=== PATIENT | female | born 1960 | race Caucasian/White ===

== ENCOUNTER 2018-04-09 15:41 | Emergency (ER) | payer OTHER ==
[2018-04-09 15:53] VITALS: BP 122/79; PULSE 57; RESP 16; TEMP 98.2
[2018-04-09] MEDS ORDERED: MORPHINE SULFATE 4 MG/ML SYRINGE IM STA (16:29)
[2018-04-09] MEDS ORDERED: CYCLOBENZAPRINE 10 MG TAB PO STA (16:29)
--- NOTE | 2018-04-09 18:03 | CT ---
EXAMINATION TYPE: CT lumbar spine wo con DATE OF EXAM: 04/09/2018 5:20 PM COMPARISON: None HISTORY: Low back pain on and off. CT DLP: 904.8 mGycm Automated exposure control for dose reduction was used. Unenhanced CT of the lumbar spine was performed. Bone and soft tissue window settings are submitted as well as coronal and sagittal reconstructions. There is a mild lumbar dextroscoliosis. There is hypertrophic degenerative spurring of the endplates mainly in the mid and upper lumbar spine. The posterior elements appear intact. There is no compressi on fracture. There is mild narrowing of the disc spaces at L1-2 and L2-3. There is no lumbar paraspin al mass. The facet joints appear intact. IMPRESSION: Spondylotic changes. Mild scoliosis. Posterior disc herniation at L2-3 is broad-based. There is mild posterior central and left-sided L3-4 disc herniation. There is small posterior disc herniation at L4 -5. There is some facet arthropathy and lateral recess stenosis and relative spinal stenosis at L4-5 .
--- NOTE | 2018-04-09 18:08 | ED ---
Back Pain HPI - General Chief Complaint: Back Pain/Injury Stated Complaint: Back pain Time Seen by Provider: 04/09/18 16:00 Source: patient Limitations: no limitations - History of Present Illness Initial Comments: 58yo with hx of chronic back pain with previous disc herniations presenting today for cc of increasing back pain x 2-3 days. Pt states she has had chronic back pain, sees pain specialist. 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 States this has been fore a month, noticing increasing low back pain. Pt states she noticed more pain the past 2-3 days. Today she states she has increased pain with twisting motion, doesnt think she "can make it to work like this". Denies fever, chills, loss of bowel , bladder control, vaginal/perineal numbness, urinary retention, numbness/ parathesias or muscle weakness of lower extremities, steroid use, hx of cancer or IVDU. Pt denies radiaiton and states that the pain is reproducible when touching each side of the lower back. Pt is ambulatory upon arrival. Pt does states that ambulating increases the pain. Pt states she is out of her ibuprofen 800mg. Upon arrival pt appears well. - Related Data Home Medications Medication Instructions Recorded Confirmed Gabapentin [Neurontin] 300 mg PO DAILY@0700 04/09/18 04/09/18 Ibuprofen [Motrin] 800 mg PO TID PRN 04/09/18 04/09/18 Levothyroxine Sodium [Synthroid] 50 mcg PO DAILY 04/09/18 04/09/18 Previous Rx's Medication Instructions Recorded Orphenadrine [Norflex] 100 mg PO Q12H 4 Days #8 tablet.er 04/09/18 Allergies Allergy/AdvReac Type Severity Reaction Status Date / Time sulfamethoxazole Allergy Rash/Hives Verified 04/09/18 16:13 [From Bactrim] trimethoprim [From Bactrim] Allergy Rash/Hives Verified 04/09/18 16:13 Review of Systems ROS Statement: Those systems with pertinent positive or pertinent negative responses have been documented in the HPI. ROS Other: All systems not noted in ROS Statement are negative. ENT: Denies: throat pain Respiratory: Denies: cough, dyspnea Cardiovascular: Denies: chest pain, dyspnea on exertion Endocrine: Denies: fatigue Gastrointestinal: Denies: abdominal pain, nausea, vomiting, hematemesis, melena Genitourinary: Denies: urgency, dysuria, frequency, hematuria Musculoskeletal: Reports: back pain Skin: Denies: rash Past Medical History Past Medical History: Atrial Fibrillation, Thyroid Disorder History of Any Multi-Drug Resistant Organisms: MRSA Date of last positivie culture/infection: 2014 MDRO Source:: STOMACH Past Surgical History: Cholecystectomy, Orthopedic Surgery Past Psychological History: No Psychological Hx Reported Smoking Status: Never smoker Past Alcohol Use History: None Reported Past Drug Use History: None Reported General Exam - General Exam Comments Initial Comments: General: The patient is awake and alert, in no distress, and does not appear acutely ill. Eye: Pupils are equal, round and reactive to light, extra-ocular movements are intact. No nystagmus. There is normal conjunctiva bilaterally. No signs of icterus. Ears, nose, mouth and throat: There are moist mucous membranes and no oral lesions. Neck: The neck is supple, there is no tenderness or JVD. Cardiovascular: There is a regular rate and rhythm. No murmur, rub or gallop is appreciated. Respiratory: Lungs are clear to auscultation, respirations are non-labored, breath sounds are equal. No wheezes, stridor, rales, or rhonchi. Gastrointestinal: Soft, non-distended, non-tender abdomen without masses or organomegaly noted. There is no rebound or guarding present. No CVA tenderness. Bowel sounds are unremarkable. Musculoskeletal: Normal ROM at lumbar spine, tenderness to with rotations and forwards flexion. Strength 5/5 of the LE equal b/l. Sensation intact including saddle region equal b/l. DP pulses equal bilaterally 2+. Pt able to heel and toe walk. +2/5 DTR b/l of LE no myoclonus or fasciculations. No atrophy noted. Pt able to ambulate fully weight bearing. + SLR b//l. Very mild midline tenderness to palpation of lumbar spine, more paravertebral tenderness of the lumbar spine Neurological: A&O x 3. CN II-XII intact, There are no obvious motor or sensory deficits. Coordination appears grossly intact. Speech is normal. Skin: Skin is warm and dry and no rashes or lesions are noted. Psychiatric: Cooperative, appropriate mood & affect, normal judgment. Limitations: no limitations Course Vital Signs 04/09/18 15:48 Temperature 98.2 F Pulse Rate 57 L Respiratory 16 Rate Blood Pressure 122/79 O2 Sat by Pulse 100 Oximetry Medical Decision Making - Medical Decision Making 58yo with cc of acute on chronic low back pain. CT revealed herniation, no significant stenosis. No signs of PE concerning for cauda equina. Pt appears well. Able to ambulate, no acute distress. Pain was significantly reproduced with palpation fo muscle of the lumbar spine. AT this time I feel pt has a low back strain. Pt given mmx relaxants and pain medication during stay. Will be discharge with ibuprofen, norflex and PCP referral for further f/u. Pt agreeable with plan. Return parameters discussed at length. Case discussed with Dr. Pete. Pt given work note to rest back for 2 days. Disposition Clinical Impression: Low back strain, Acute exacerbation of chronic low back pain Disposition: HOME SELF-CARE Condition: Good Instructions: Low Back Strain (ED), Acute Low Back Pain (ED) Additional Instructions: Please use medication as discussed. Please follow-up with family doctor in the next 2 days. Please return to emergency room if the symptoms increase or worsen or for any other concerns. Prescriptions: Orphenadrine [Norflex] 100 mg PO Q12H 4 Days #8 tablet.er Is patient prescribed a controlled substance at d/c from ED?: No Referrals: Tamie Sharp MD [Primary Care Provider] - 1-2 days Time of Disposition: 18:08
== END 2018-04-09 19:19 | disposition home or self-care (01) ==
LOC: EC 15:41
DX: S39.012A Strain of muscle, fascia and tendon of lower back, initial encounter (principal); M51.26 Other intervertebral disc displacement, lumbar region; E07.9 Disorder of thyroid, unspecified; Z86.14 Personal history of Methicillin resistant Staphylococcus aureus infection; Z79.899 Other long term (current) drug therapy; Z88.2 Allergy status to sulfonamides; X58.XXXA Exposure to other specified factors, initial encounter; Y92.69 Other specified industrial and construction area as the place of occurrence of the external cause; Y99.0 Civilian activity done for income or pay
CPT/HCPCS: 72131; 99283; 96372; J2270

== ENCOUNTER → 2018-05-11 | Outpatient (CLI) | payer OTHER ==
[2018-05-11 10:19] LABS: Basophils # (A) 0.1 k/uL (0-0.2); Basophils % (A) 1 %; Eosinophils # (A) 0.2 k/uL (0-0.7); Eosinophils % (A) 3 %; HCT 42.9 % (34.0-46.0); HGB 13.5 gm/dL (11.4-16.0); Lymphocytes # (A) 1.7 k/uL (1.0-4.8); Lymphocytes % (A) 26 %; MCH 27.5 pg (25.0-35.0); MCHC 31.4 g/dL (31.0-37.0); MCV 87.6 fL (80.0-100.0); Mean Platelet Volume 6.8; Monocytes # (A) 0.4 k/uL (0-1.0); Monocytes % (A) 7 %; Neutrophils # (A) 4.1 k/uL (1.3-7.7); Neutrophils % (A) 63 %; Platelet Count 331 k/uL (150-450); RDW 13.8 % (11.5-15.5); WBC 6.5 k/uL (3.8-10.6)
[2018-05-11 13:39] LABS: Erythrocyte Sedimentation Rate 21 mm/hr (0-20)
[2018-05-11 17:05] LABS: Rheumatoid Factor 10 IU/mL (0-15)
[2018-05-11 18:11] LABS: Albumin 4.5 g/dL (3.80-4.90); Albumin/Globulin Ratio 1.67 (1.60-3.17); Anion Gap 7.3 mmol/L (4.00-12.00); Calcium 9.8 mg/dL (8.7-10.3); Carbon Dioxide 25.7 mmol/L (21.6-31.8); Globulin 2.7 g/dL (1.6-3.3); LDL Cholesterol,Calculated 136.8 mg/dL (0.0-131.0); Potassium 5.3 mmol/L (3.5-5.5); Total Bilirubin 0.4 mg/dL (0.3-1.2); Total Protein 7.2 g/dL (6.2-8.2); VLDL Calculation 32.2 mg/dL (5.00-40.00)
== END ==
LOC: LABWHC1 09:10
PROVIDERS: ATTEND Family Medicine
DX: E06.3 Autoimmune thyroiditis (principal); E66.9 Obesity, unspecified; J45.20 Mild intermittent asthma, uncomplicated; M25.50 Pain in unspecified joint
CPT/HCPCS: 36415; 80053; 80061; 84439; 84443; 85025; 85652; 86038; 86431

== ENCOUNTER → 2018-05-19 | Outpatient (CLI) | payer OTHER ==
--- NOTE | 2018-05-19 14:29 | US ---
EXAMINATION TYPE: US thyroid st tissue head/neck DATE OF EXAM: 05/19/2018 COMPARISON: NONE CLINICAL HISTORY: E04.9 Nontoxic goiter, E06.3Autoimmune thyroiditis. Enlarged, heterogeneous thyroid gland is seen bilaterally. GLAND SIZE: Right Lobe: 8.7 x 3.3 x 3.3 cm Overall Parenchyma: heterogenous Left Lobe: 7.3 x 2.6 x 2.7 cm Overall Parenchyma: heterogeneous Isthmus Thickness: 1.3 cm NODULES RIGHT: # of nodules measured on right: 0 LEFT: # of nodules measured on left: 1 1. 1.0 X 0.4 x 0.5 cm hypoechoic cystic nodule at the lower pole with well-defined margins. This n odule is taller than wide and shows no intranodular vascularity. ISTHMUS: # of nodules measured in the isthmus: 0 Bilateral neck scanned: no evidence of lymphadenopathy. Heterogeneous markedly enlarged thyroid gland is identified with small cystic nodule marked by techno logist lower pole level left thyroid lobe. IMPRESSION: Heterogeneous enlarged thyroid without worrisome greater than 1 cm nodule. Findings consistent with d iffuse goiter.
== END | disposition home or self-care (01) ==
LOC: RADUSWWP 13:35
PROVIDERS: ATTEND Family Medicine
DX: E04.1 Nontoxic single thyroid nodule (principal)
CPT/HCPCS: 76536

== ENCOUNTER → 2018-05-27 | Outpatient (CLI) | payer OTHER ==
[2018-05-27 21:05] LABS: Hemoglobin A1C 5.5 % (4.0-6.0)
== END | disposition home or self-care (01) ==
LOC: LABWHC1 11:48
PROVIDERS: ATTEND Family Medicine
DX: R73.9 Hyperglycemia, unspecified (principal)
CPT/HCPCS: 36415; 82947; 83036

== ENCOUNTER → 2018-07-14 | Outpatient (CLI) | payer OTHER ==
--- NOTE | 2018-07-14 13:08 | XR ---
EXAMINATION TYPE: XR hand complete RT DATE OF EXAM: 07/14/2018 COMPARISON: NONE HISTORY: Pain TECHNIQUE: Three views are submitted. FINDINGS: The osseous structures are intact. There is severe arthropathy of the first carpal metacarpal joint i n a pattern compatible osteoarthritis. Soft tissue ossification noted. Hypertrophic change and mild n arrowing of all DIP joints. IMPRESSION: 1. Arthropathy with severe changes involving the first carpal metacarpal joint in a pattern most typi saud of osteoarthritis.
--- NOTE | 2018-07-14 13:09 | XR ---
EXAMINATION TYPE: XR wrist complete RT DATE OF EXAM: 07/14/2018 CLINICAL HISTORY: pain TECHNIQUE: Frontal, lateral and oblique images of the right wrist are obtained. COMPARISON: None. FINDINGS: There is no acute fracture/dislocation evident. Severe narrowing first carpometacarpal joint space wi th bony fragmentation. Radiocarpal joint space narrowing. The overlying soft tissue appears unremarka ble. IMPRESSION: There is no acute fracture or dislocation seen. ICD 10 NO FRACTURE, INITIAL EVALUATION
== END | disposition home or self-care (01) ==
LOC: RADXRMAIN 12:32
PROVIDERS: ATTEND Family Medicine
DX: M19.041 Primary osteoarthritis, right hand (principal); S66.911A Strain of unspecified muscle, fascia and tendon at wrist and hand level, right hand, initial encounter

== ENCOUNTER → 2018-08-04 | Outpatient (CLI) | payer OTHER ==
[2018-08-05 01:14] LABS: Rheumatoid Factor 6 IU/mL (0-15)
== END | disposition home or self-care (01) ==
LOC: LABWHC1 15:45
PROVIDERS: ATTEND Family Medicine
DX: M25.50 Pain in unspecified joint (principal)
CPT/HCPCS: 36415; 85652; 86038; 86431

== ENCOUNTER → 2018-08-10 | Outpatient (CLI) | payer OTHER ==
[~2018-08-10] MED LIST: REGADENOSON 0.4 MG/5 ML SYRINGE IV ONE
--- NOTE | 2018-08-10 11:21 | NM ---
EXAMINATION TYPE: NM stress lexiscan cardiolite DATE OF EXAM: 08/10/2018 COMPARISON: NONE HISTORY: Precordial chest pain and abnormal EKG. TECHNIQUE: After the intravenous administration of 10.0 mCi Tc 99m Sestamibi - Cardiolite resting SP ECT images acquired 45 minutes post injection. The patient received 0.4mg Lexiscan, 25.7 mCi Tc 99m Sestamibi - Stress images obtained [address] injection FINDINGS: Review of stress and rest SPECT images demonstrates no distinct perfusion abnormality. Gated analysi s shows normal wall motion with an estimated left ventricular ejection fraction of 61 %. IMPRESSION: No scintigraphic evidence for reversible ischemia.
--- NOTE | 2018-08-10 19:41 | P.STRESS ---
- Stress Test Note Stress Test Results/Findings: Exam Performed: NM stress lexiscan cardiolite Exam Date: 08/10/18 Reason for Exam: Chest Pain Height: 4 ft 10 in Weight: 79.379 kg Protocol: Lexiscan Stage: na Duration of Exercise: na Resting Heart Rate: 49 Resting Blood Pressure: 117/62 Maximum Achieved Heart Rate: 63 Maximum Achieved Blood Pressure: 148/105 85% PMHR: 139 100% PMHR: 164 METS: na Technologist Comment: Stress Test Results/Findings: Baseline heart rate 49 beats a minute, Baseline blood pressure 117/62 mmHg with ventricular lead ECG shows sinus rhythm with a 0.[address] depression inferiorly No ECG changes noted during Lexiscan infusion Nuclear portion of the study will be reported separately by radiology Lowest blood pressure recorded 98/62 mmHg during Lexiscan infusion, transient Heart rates remained stable
== END ==
LOC: RADNMMAIN 08:04
PROVIDERS: ATTEND Family Medicine
DX: R07.89 Other chest pain (principal)
CPT/HCPCS: 93017; 78452; A9500; J2785

== ENCOUNTER → 2019-05-04 | Outpatient (CLI) | payer OTHER ==
--- NOTE | 2019-05-04 11:36 | XR ---
EXAMINATION TYPE: XR cervical spine limited DATE OF EXAM: 05/04/2019 TECHNIQUE: Frontal, lateral and open mouth view of the cervical spine are obtained. HISTORY: Cervical Spine pain COMPARISON: None FINDINGS: The cervical spine is visualized in its entirety from C1 thru the top of T1 level, vertebr al body heights are satisfactory. There is minimal retrolisthesis of C5 on C6. Minimal intervertebra l disc space narrowing at C5-C6 and C6-C7. Multilevel uncovertebral hypertrophy is seen The pre-verte bral soft tissue appears within normal limits. The C1-C2 articulation is within normal limits on the open mouth view. IMPRESSION: 1. No acute fracture is seen in the cervical spine. 2. Minimal retrolisthesis of C5 on C6 and mild multilevel degenerative disc disease of the cervical s pine most pronounced at C5-C6 and C6-C7.
== END | disposition home or self-care (01) ==
LOC: RADXRMAIN 09:57
PROVIDERS: ATTEND Family Medicine
DX: M50.322 Other cervical disc degeneration at C5-C6 level (principal); M43.12 Spondylolisthesis, cervical region
CPT/HCPCS: 72040

== ENCOUNTER → 2021-04-05 | Outpatient (CLI) | payer OTHER ==
--- NOTE | 2021-04-06 09:22 | CT ---
EXAMINATION TYPE: CT lumbar spine wo con DATE OF EXAM: 04/05/2021 5:49 PM COMPARISON: 04/09/2018 HISTORY: Lumbar neuritis CT DLP: 818.10 mGycm Automated exposure control for dose reduction was used. Unenhanced CT of the lumbar spine was performed. Bone and soft tissue window settings are submitted as well as coronal and sagittal reconstructions. Scoliotic curvature is noted convex to the right. L1-L2: There is evidence of vacuum disc. Ventral and dorsal spondylosis. Mild posterior disc bulge. N o disc herniation or protrusion. No central stenosis. Foramina are patent bilaterally. L2-L3: There is evidence of vacuum disc. Ventral and dorsal spondylosis. Mild posterior disc bulge. N o disc herniation or protrusion. No central stenosis. Left lateral recess stenosis identified. Bilate ral foraminal encroachment. Foramina are patent bilaterally. L3-L4: Moderate degenerative disc space narrowing. Circumferential disc bulge greatest posteriorly. H ypertrophy of the ligamentum flavum and facet joint arthropathy resulting in mild central stenosis. L4-L5: Moderate degenerative disc space narrowing. Posterior disc bulge. Hypertrophy ligamentum flavum and facet joint arthropathy resulting in moderate central stenosis. Mild bilateral foraminal encroachment. L5-S1: Moderate disc space narrowing. Broad-based subligamentous disc herniation posterocentral into the left resulting in left lateral recess stenosis. No central stenosis seen. Left foraminal encroach ment. IMPRESSION: 1. Multilevel degenerative disc disease. 2. Central stenosis at L3-4 and L4-5 as discussed above. Left lateral recess stenosis at L5-S1 and L2 -3.
== END | disposition home or self-care (01) ==
LOC: RADCTMAIN 17:17
PROVIDERS: ATTEND Family Medicine
DX: M51.17 Intervertebral disc disorders with radiculopathy, lumbosacral region (principal); M48.061 Spinal stenosis, lumbar region without neurogenic claudication; M47.26 Other spondylosis with radiculopathy, lumbar region
CPT/HCPCS: 72131

== ENCOUNTER 2021-07-22 17:41 | Observation (INO) | payer OTHER ==
[2021-07-22 19:44] LABS: Basophils # (A) 0.1 k/uL (0-0.2); Basophils % (A) 1 %; Eosinophils # (A) 0.2 k/uL (0-0.7); Eosinophils % (A) 2 %; HCT 40.4 % (34.0-46.0); HGB 13.3 gm/dL (11.4-16.0); Lymphocytes # (A) 2.2 k/uL (1.0-4.8); Lymphocytes % (A) 25 %; MCH 29.3 pg (25.0-35.0); MCHC 32.8 g/dL (31.0-37.0); MCV 89.2 fL (80.0-100.0); Mean Platelet Volume 7.6; Monocytes # (A) 0.5 k/uL (0-1.0); Monocytes % (A) 6 %; Neutrophils # (A) 5.8 k/uL (1.3-7.7); Neutrophils % (A) 65 %; Platelet Count 358 k/uL (150-450); RBC 4.52 m/uL (3.80-5.40); WBC 8.9 k/uL (3.8-10.6)
[2021-07-22 19:46] LABS: Calcium 8.8 mg/dL (8.4-10.2); Total Bilirubin 0.5 mg/dL (0.2-1.3)
[2021-07-22 19:47] LABS: Prothrombin Time 10.5 sec (9.0-12.0)
--- NOTE | 2021-07-22 19:53 | XR ---
EXAMINATION TYPE: XR chest 2V DATE OF EXAM: 07/22/2021 COMPARISON: NONE HISTORY: Palpitations TECHNIQUE: 2 views FINDINGS: Heart is enlarged. No heart failure seen. Lungs are clear of infiltrate. There is no pleura l effusion. Costophrenic angles are clear. There are chest leads. Bony thorax is intact. IMPRESSION: Mild cardiomegaly. No active cardiopulmonary disease.
--- NOTE | 2021-07-22 20:05 | ED ---
General Adult HPI - General Chief complaint: Chest Pain Stated complaint: palpitations Time Seen by Provider: 07/22/21 18:45 Source: patient, EMS Mode of arrival: EMS - History of Present Illness Initial comments: 61-year-old female past history of A. fib presents to the emergency department with palpitations and chest pain. Reports that her symptoms started earlier this afternoon. She was using her pulse ox to check her heart rate was fluctuating between 85 and 140. She felt as if something was sitting on her chest. She denies previous history of coronary disease. Last cardiac workup was in 2019. Denies fevers, chills or cough. She took 2 Aleve without any improvement in her symptoms. No other alleviating, filing or registry clerk modifying factors - Related Data Home Medications Medication Instructions Recorded Confirmed Cephalexin [Keflex] 500 mg PO Q12HR 07/22/21 07/22/21 Ergocalciferol [Vitamin D2 (1250 1,250 mcg PO MO 07/22/21 07/22/21 Mcg = 11823 Iu)] Furosemide [Lasix] 20 mg PO DAILY 07/22/21 07/22/21 Gabapentin 600 mg PO TID 07/22/21 07/22/21 HYDROcodone/APAP 7.5-325MG [[place] 1 tab PO Q12H PRN 07/22/21 07/22/21 7.5-325] Ibuprofen [Motrin] 600 mg PO BID 07/22/21 07/22/21 Levothyroxine Sodium [Synthroid] 100 mcg PO DAILY 07/22/21 07/22/21 Previous Rx's Medication Instructions Recorded Metoprolol Tartrate [Lopressor] 12.5 mg PO BID 90 Days #180 tab 07/23/21 Allergies Allergy/AdvReac Type Severity Reaction Status Date / Time sulfamethoxazole Allergy Rash/Hives Verified 07/22/21 19:10 [From Bactrim] trimethoprim [From Bactrim] Allergy Rash/Hives Verified 07/22/21 19:10 Review of Systems ROS Statement: Those systems with pertinent positive or pertinent negative responses have been documented in the HPI. ROS Other: All systems not noted in ROS Statement are negative. Past Medical History Past Medical History: Atrial Fibrillation, Thyroid Disorder History of Any Multi-Drug Resistant Organisms: MRSA Date of last positivie culture/infection: 2014 MDRO Source:: STOMACH Past Surgical History: Cholecystectomy, Orthopedic Surgery Past Psychological History: No Psychological Hx Reported Past Alcohol Use History: None Reported Past Drug Use History: None Reported - Past Family History Father Family Medical History: COPD, Diabetes Mellitus Additional Family Medical History / Comment(s): enalrged heart General Exam General appearance: alert, in no apparent distress Head exam: Present: atraumatic, normocephalic, normal inspection Eye exam: Present: normal appearance, PERRL, EOMI. Absent: scleral icterus, conjunctival injection, periorbital swelling ENT exam: Present: normal exam, mucous membranes moist Neck exam: Present: normal inspection. Absent: tenderness, meningismus, lymphadenopathy Respiratory exam: Present: normal lung sounds bilaterally. Absent: respiratory distress, wheezes, rales, rhonchi, stridor Cardiovascular Exam: Present: regular rate, normal rhythm, normal heart sounds. Absent: systolic murmur, diastolic murmur, rubs, gallop, clicks GI/Abdominal exam: Present: soft, normal bowel sounds. Absent: distended, tenderness, guarding, rebound, rigid Extremities exam: Present: normal inspection, full ROM, normal capillary refill. Absent: tenderness, pedal edema, joint swelling, calf tenderness Back exam: Present: normal inspection Neurological exam: Present: alert, oriented X3, CN II-XII intact Psychiatric exam: Present: normal affect, normal mood Skin exam: Present: warm, dry, intact, normal color. Absent: rash Course Vital Signs 07/22/21 07/22/21 18:06 21:01 Temperature 98.2 F Pulse Rate 65 58 L Respiratory 18 18 Rate Blood Pressure 139/70 138/85 O2 Sat by Pulse 97 98 Oximetry EKG Findings - EKG Comments: EKG Findings:: EKG demonstrates sinus rhythm with rate of 63. DE interval 173. QRS 93. QTC of 421. No acute ST segment elevation. Inverted T-wave in V2 Medical Decision Making - Medical Decision Making Upon arrival patient was placed into room 13. History and physical exam was performed. Patient placed on continuous pulse ox and cardiac monitoring. Laboratory studies obtained. First troponin is negative. Chest x-ray demonstrates cardiomyopathy. Patient is given an aspirin and a sublingual nitro. Recommended admission to trend the troponin's for which the patient did agree to. Spoke with Dr. Calderon who agreed to admit the patient. Patient taken to floor in stable condition - Lab Data Result diagrams: 07/23/21 05:00 07/23/21 05:00 Lab Results 07/22/21 07/22/21 07/22/21 Range/Units 19:27 19:27 19:27 WBC 8.9 (3.8-10.6) k/uL RBC 4.52 (3.80-5.40) m/uL Hgb 13.3 (11.4-16.0) gm/dL Hct 40.4 (34.0-46.0) % MCV 89.2 (80.0-100.0) fL MCH 29.3 (25.0-35.0) pg MCHC 32.8 (31.0-37.0) g/dL RDW 14.0 (11.5-15.5) % Plt Count 358 (150-450) k/uL MPV 7.6 Neutrophils % 65 % Lymphocytes % 25 % Monocytes % 6 % Eosinophils % 2 % Basophils % 1 % Neutrophils # 5.8 (1.3-7.7) k/uL Lymphocytes # 2.2 (1.0-4.8) k/uL Monocytes # 0.5 (0-1.0) k/uL Eosinophils # 0.2 (0-0.7) k/uL Basophils # 0.1 (0-0.2) k/uL PT 10.5 (9.0-12.0) sec INR 1.0 (<1.2) APTT 26.0 (22.0-30.0) sec Sodium 140 (137-145) mmol/L Potassium 4.0 (3.5-5.1) mmol/L Chloride 106 (98-107) mmol/L Carbon Dioxide 28 (22-30) mmol/L Anion Gap 6 mmol/L BUN 18 H (7-17) mg/dL Creatinine 0.88 (0.52-1.04) mg/dL Est GFR (CKD-EPI)AfAm 84 (>60 ml/min/1.73 sqM) Est GFR (CKD-EPI)NonAf 73 (>60 ml/min/1.73 sqM) Glucose 92 (74-99) mg/dL Calcium 8.8 (8.4-10.2) mg/dL Magnesium 2.0 (1.6-2.3) mg/dL Total Bilirubin 0.5 (0.2-1.3) mg/dL AST 22 (14-36) U/L ALT 14 (4-34) U/L Alkaline Phosphatase 98 (38-126) U/L Troponin I (0.000-0.034) ng/mL Total Protein 7.0 (6.3-8.2) g/dL Albumin 4.0 (3.5-5.0) g/dL 07/22/21 Range/Units 19:27 WBC (3.8-10.6) k/uL RBC (3.80-5.40) m/uL Hgb (11.4-16.0) gm/dL Hct (34.0-46.0) % MCV (80.0-100.0) fL MCH (25.0-35.0) pg MCHC (31.0-37.0) g/dL RDW (11.5-15.5) % Plt Count (150-450) k/uL MPV Neutrophils % % Lymphocytes % % Monocytes % % Eosinophils % % Basophils % % Neutrophils # (1.3-7.7) k/uL Lymphocytes # (1.0-4.8) k/uL Monocytes # (0-1.0) k/uL Eosinophils # (0-0.7) k/uL Basophils # (0-0.2) k/uL PT (9.0-12.0) sec INR (<1.2) APTT (22.0-30.0) sec Sodium (137-145) mmol/L Potassium (3.5-5.1) mmol/L Chloride (98-107) mmol/L Carbon Dioxide (22-30) mmol/L Anion Gap mmol/L BUN (7-17) mg/dL Creatinine (0.52-1.04) mg/dL Est GFR (CKD-EPI)AfAm (>60 ml/min/1.73 sqM) Est GFR (CKD-EPI)NonAf (>60 ml/min/1.73 sqM) Glucose (74-99) mg/dL Calcium (8.4-10.2) mg/dL Magnesium (1.6-2.3) mg/dL Total Bilirubin (0.2-1.3) mg/dL AST (14-36) U/L ALT (4-34) U/L Alkaline Phosphatase (38-126) U/L Troponin I <0.012 (0.000-0.034) ng/mL Total Protein (6.3-8.2) g/dL Albumin (3.5-5.0) g/dL Disposition Clinical Impression: Chest pain, Palpitations Disposition: ADMITTED IP TO THIS HOSP Condition: Stable Is patient prescribed a controlled substance at d/c from ED?: No Decision to Admit Reason: Admit from EC Decision Date: 07/22/21 Decision Time: 20:39
[2021-07-22] MEDS ORDERED: ASPIRIN 325 MG TAB PO STA (20:34)
[2021-07-22] MEDS ORDERED: NITROGLYCERIN SL TABS 0.4 MG TAB SUBLINGUAL STA (20:37)
[2021-07-22] MEDS ORDERED: NALOXONE 0.4 MG/ML 1 ML VIAL IV PRN (20:40)
[2021-07-23] MEDS ORDERED: HYDROcodone/APAP 7.5-325MG 1 EACH TAB PO PRN (01:18)
[2021-07-23] MEDS ORDERED: LEVOTHYROXINE 100 MCG TAB PO SCH (06:30)
[2021-07-23] MEDS ORDERED: TRIAMTERENE-HCTZ 37.5-25MG 1 EACH TAB PO SCH (09:00)
[2021-07-23] MEDS ORDERED: GABAPENTIN 300 MG CAP PO SCH (09:00)
[2021-07-23] MEDS ORDERED: ERGOCALCIFEROL 1,250 MCG (50,000 IU) CAPSULE PO SCH (09:00)
[2021-07-23] MEDS ORDERED: FUROSEMIDE 20 MG TAB PO SCH (09:00)
--- NOTE | 2021-07-23 09:16 | P.CRDCN ---
History of Present Illness History of present illness: HISTORY OF PRESENTING ILLNESS This is a pleasant 61-year-old female past medical history significant for hypertension, tachycardia after her knee replacement 5 years ago (not diagnosed with an arrhythmia), TIA at the age of 51, hypothyroidism. She does not follow with a cloud consultant. We have been asked to see in consultation for chest pain. Patient presents emergency department with complaints of palpitations for about 3 days. She states over the past 3 days she has been having feelings of her heart racing. Not exacerbated by activity. She states she will check her HR with her pulse oximeter at home. Yesterday in particular she had an acute onset of palpitations after doing some non-strenuous gardening outside. She had associated short of breath and had some diaphoresis, she checked her pulse ox and her heart rate was in the 160s. She states her HR gradually came down. She did have some midsternal non-radiating, non-exertional chest discomfort during palpitations. Describes it as heavy. This subsided when her palpitations subsided. She states her children were worried and advised the patient be evaluated in the ER. She denies any current chest pain. Her palpitations have resolved. She denies any history of NC, Stroke, Diabetes, or high cholesterol. She is a non/never smoker. Denies alcohol or illicit drug use. She is unaware of her family history. After her knee replacement 4-5 years ago, she experienced tachycardia, she states she underwent stress test, echocardiogram, and 24 hour holter monitor and no significant diagnosis was made. DIAGNOSTICS EKG reveals sinus rhythm, heart rate 63, low voltage, slow R wave progression, T wave inversion in lead avL and V2, no significant ST or T wave abnormalities to suggest ischemia. EKG in 2019 with similar findings Lexiscan stress test in 2019 negative Telemetry tracings indicate sinus rhythm HR 48-60s, no tachycardia or arrhythmia noted. Chest xray no acute cardiopulmonary process. heart is enlarged Laboratory reviewed, troponin x 3, cbc unremarkable, Sodium 140, K 4.0, BUN 18, serum creatinine 0.8, magnesium 2.0 Current home medications include triamterene/surgical Dyazide 37.5/25 mg daily, Synthroid 100 mcg daily, Lasix 20 mg daily, Gabapentin, Keflex REVIEW OF SYSTEMS At the time of my exam: CONSTITUTIONAL: Denies fever or chills. CARDIOVASCULAR: Denies chest pain, shortness of breath, orthopnea, PND or palpitations. RESPIRATORY: Denies cough. GASTROINTESTINAL: Denies abdominal pain, diarrhea, constipation, nausea or vomiting. MUSCULOSKELETAL: Denies myalgias. NEUROLOGIC: Denies numbness, tingling, headache or weakness. ENDOCRINE: Denies fatigue, weight change, polydipsia or polyurina. GENITOURINARY: Denies burning, hematuria or urgency with micturation. HEMATOLOGIC: Denies history of anemia or bleeding. PHYSICAL EXAMINATION Vitals reviewed CONSTITUTIONAL: No apparent distress. HEENT: Head is normocephalic. Pupils are equal, round. Sclerae anicteric. Mucous membranes of the mouth are moist. No JVD. No carotid bruit. CHEST EXAMINATION: Lungs are clear to auscultation. No chest wall tenderness is noted on palpation or with deep breathing. HEART EXAMINATION: Regular rate and rhythm. S1, S2 heard. No murmurs, gallops or rub. ABDOMEN: Soft, nontender. Positive bowel sounds. EXTREMITIES: 2+ peripheral pulses, mild non-pitting bilateral ankle lower extremity edema and no calf tenderness. SKIN: warm, dry NEUROLOGIC EXAMINATION: Patient is awake, alert and oriented x3. ASSESSMENT Chest pain, atypical, acute coronary syndrome has been ruled out Palpitations Hypertension History of left knee replacement History of TIA Hypothyroidism PLAN An acute coronary event has been ruled out with no EKG evidence of ischemia and negative cardiac enzymes. Obtain 2D echocardiogram and doppler study to assess cardiac structure and function. Obtain Stress echo testing today. Recommend 30 day event monitor to evaluate arrhythmia From a cardiology perspective, if stress test is negative, patient can be discharged after cardiac event monitor is placed. Follow up outpatient with Dr. Correa Thank you kindly for this consultation. Nurse practitioner note has been reviewed by physician. Signing provider agrees with the documented findings, assessment, and plan of care. Past Medical History Past Medical History: Atrial Fibrillation, Thyroid Disorder Additional Past Medical History / Comment(s): a-fib after knee replacment (proximal) History of Any Multi-Drug Resistant Organisms: MRSA Date of last positivie culture/infection: 2014 MDRO Source:: STOMACH Past Surgical History: Cholecystectomy, Orthopedic Surgery Additional Past Surgical History / Comment(s): left knee replacment Past Anesthesia/Blood Transfusion Reactions: No Reported Reaction Past Psychological History: No Psychological Hx Reported Past Alcohol Use History: None Reported Past Drug Use History: None Reported - Past Family History Father Family Medical History: COPD, Diabetes Mellitus Additional Family Medical History / Comment(s): enalrged heart Medications and Allergies Home Medications Medication Instructions Recorded Confirmed Type Cephalexin [Keflex] 500 mg PO Q12HR 07/22/21 07/22/21 History Ergocalciferol [Vitamin D2 (1250 1,250 mcg PO MO 07/22/21 07/22/21 History Mcg = 28075 Iu)] Furosemide [Lasix] 20 mg PO DAILY 07/22/21 07/22/21 History Gabapentin 600 mg PO TID 07/22/21 07/22/21 History HYDROcodone/APAP 7.5-325MG [Anthony 1 tab PO Q12H PRN 07/22/21 07/22/21 History 7.5-325] Ibuprofen [Motrin] 600 mg PO BID 07/22/21 07/22/21 History Levothyroxine Sodium [Synthroid] 100 mcg PO DAILY 07/22/21 07/22/21 History Triamterene/Hydrochlorothiazid 2 tab PO DAILY 07/22/21 07/22/21 History [Triamterene-Hctz 37.5-25 mg Tb] Allergies Allergy/AdvReac Type Severity Reaction Status Date / Time sulfamethoxazole Allergy Rash/Hives Verified 07/22/21 19:10 [From Bactrim] trimethoprim [From Bactrim] Allergy Rash/Hives Verified 07/22/21 19:10 Physical Exam Vitals: Vital Signs Temp Pulse Pulse Resp BP BP Pulse Ox 07/23/21 02:00 98.1 F 60 18 119/70 100 07/22/21 22:11 97.7 F 59 L 20 160/81 99 07/22/21 21:01 58 L 18 138/85 98 07/22/21 18:06 98.2 F 65 18 139/70 97 Intake and Output 07/22/21 07/23/21 07/23/21 22:59 06:59 14:59 Intake Total 222 Balance 222 Intake: Oral 222 Other: Voiding Method Toilet Diaper # Voids 1 2 Weight 67.132 kg Results 07/22/21 19:27 07/22/21 19:27 Cardiac Enzymes 07/22/21 07/22/21 07/22/21 Range/Units 19:27 19:27 21:57 AST 22 (14-36) U/L Troponin I <0.012 <0.012 (0.000-0.034) ng/mL 07/22/21 Range/Units 23:34 AST (14-36) U/L Troponin I <0.012 (0.000-0.034) ng/mL Coagulation 07/22/21 Range/Units 19:27 PT 10.5 (9.0-12.0) sec APTT 26.0 (22.0-30.0) sec CBC 07/22/21 Range/Units 19:27 WBC 8.9 (3.8-10.6) k/uL RBC 4.52 (3.80-5.40) m/uL Hgb 13.3 (11.4-16.0) gm/dL Hct 40.4 (34.0-46.0) % Plt Count 358 (150-450) k/uL Comprehensive Metabolic Panel 07/22/21 Range/Units 19:27 Sodium 140 (137-145) mmol/L Potassium 4.0 (3.5-5.1) mmol/L Chloride 106 (98-107) mmol/L Carbon Dioxide 28 (22-30) mmol/L BUN 18 H (7-17) mg/dL Creatinine 0.88 (0.52-1.04) mg/dL Glucose 92 (74-99) mg/dL Calcium 8.8 (8.4-10.2) mg/dL AST 22 (14-36) U/L ALT 14 (4-34) U/L Alkaline Phosphatase 98 (38-126) U/L Total Protein 7.0 (6.3-8.2) g/dL Albumin 4.0 (3.5-5.0) g/dL Current Medications Generic Name Dose Route Start Last Admin Trade Name Freq PRN Reason Stop Dose Admin Hydrocodone Bitart/Acetaminophen 1 each 07/23/21 01:18 07/23/21 03:24 Hydrocodone/Apap 7.5-325mg 1 Each Tab PO 1 each Q12H PRN Administration Pain Ergocalciferol 1,250 mcg 07/23/21 09:00 Ergocalciferol 1,250 Mcg (50,000 Iu) Capsule PO [facility] Furosemide 20 mg 07/23/21 09:00 Furosemide 20 Mg Tab PO DAILY FÁTIMA Gabapentin 600 mg 07/23/21 09:00 Gabapentin 300 Mg Cap PO TID FÁTIMA Levothyroxine Sodium 100 mcg 07/23/21 06:30 07/23/21 05:34 Levothyroxine 100 Mcg Tab PO 100 mcg DAILY@0630 FÁTIMA Administration Naloxone HCl 0.2 mg 07/22/21 20:40 Naloxone 0.4 Mg/Ml 1 Ml Vial IV Q2M PRN Opioid Reversal Triamterene/Hydrochlorothiazide 2 each 07/23/21 09:00 Triamterene-Hctz 37.5-25mg 1 Each Tab PO DAILY FÁTIMA Intake and Output 07/22/21 07/23/21 07/23/21 22:59 06:59 14:59 Intake Total 222 Balance 222 Intake: Oral 222 Other: Voiding Method Toilet Diaper # Voids 1 2 Weight 67.132 kg 07/22/21 19:27 07/22/21 19:27
[2021-07-23 09:50] LABS: African American GFR (CKD) 109.9 (60.0-200.0); BUN/Creat Ratio 22.14 Ratio (12.00-20.00); Blood Urea Nitrogen 15.5 mg/dL (9.0-27.0); Calcium 9.1 mg/dL (8.7-10.3); Non-African American GFR(CKD) 94.8 (60.0-200.0)
[2021-07-23 09:59] LABS: Basophils # (A) 0.06 X 10*3/uL (0.00-0.10); Basophils % (A) 0.8 %; Eosinophils # (A) 0.17 X 10*3/uL (0.04-0.35); Eosinophils % (A) 2.2 %; HCT 39.4 % (37.2-46.3); HGB 12.4 g/dL (12.0-15.0); Immature Grans, Automated 0.1 %; Lymphocytes % (A) 29.5 %; MCH 28.8 pg (27.0-32.0); MCHC 31.5 g/dL (32.0-37.0); MCV 91.6 fL (80.0-97.0); Monocytes # (A) 0.81 X 10*3/uL (0.20-1.00); Monocytes % (A) 10.4 %; NRBC Per 100 WBC 0 /100 WBCS (0.0-0.0); Neutrophils # (A) 4.45 X 10*3/uL (1.80-7.70); Platelet Count 302 X 10*3/uL (140-440); RDW 14.2 % (11.5-14.5)
--- NOTE | 2021-07-23 11:20 | ECHOF ---
Referral Reason:chest discomfort, palpitations MEASUREMENTS -------- HEIGHT: 129.5 cm WEIGHT: 67.1 kg BP: RVIDd: 3.1 cm (< 3.3) IVSd: 1.3 cm (0.6 - 1.1) LVIDd: 3.0 cm (3.9 - 5.3) LVPWd: 1.1 cm (0.6 - 1.1) IVSs: 1.7 cm LVIDs: 2.3 cm LVPWs: 1.6 cm Ao Diam: 3.1 cm (2.0 - 3.7) AV Cusp: 2.1 cm (1.5 - 2.6) LA Diam: 3.0 cm (2.7 - 3.8) MV EXCURSION: 12.885 mm (> 18.000) MV EF SLOPE: 55 mm/s (70 - 150) EPSS: 0.2 cm MV E Tomi: 0.44 m/s MV DecT: 271 ms MV A Tomi: 0.65 m/s MV E/A Ratio: 0.68 RAP: 5.00 mmHg RVSP: 10.41 mmHg FINDINGS -------- This was a technically adequate study. The left ventricular size is normal. Left ventricular wall thickness is normal. Overall left vent ricular systolic function is normal with, an EF between 55 - 60 %. The right ventricle is normal in size. The left atrial size is normal. The right atrial size is normal. The aortic valve is trileaflet and appears structurally normal. The mitral valve is normal. The mitral valve leaflets are mildly thickened. There is trace mitral regurgitation. The tricuspid valve appears structurally normal. Trace tricuspid regurgitation present. Right kirstie tricular systolic pressure is normal at < 35 mmHg. Trace/mild (physiologic) pulmonic regurgitation. The aortic root size is normal. Normal inferior vena cava with normal inspiratory collapse consistent with estimated right atrial pre ssure of 5 mmHg. There is no pericardial effusion. CONCLUSIONS -------- 1. The left ventricular size is normal. 2. Left ventricular wall thickness is normal. 3. Overall left ventricular systolic function is normal with, an EF between 55 - 60 %. 4. The mitral valve leaflets are mildly thickened. 5. There is trace mitral regurgitation. 6. Trace tricuspid regurgitation present. 7. Trace/mild (physiologic) pulmonic regurgitation. 8. There is no pericardial effusion. MULTIPLE RESAW OPERATOR: Latonia Mcmahon RDCS
--- NOTE | 2021-07-23 11:59 | P.STRESS ---
- Stress Test Note Stress Test Results/Findings: Exam Performed: stress echo exercise Exam Date: 07/23/21 Reason for Exam: Chest Pain Height: 4 ft 10 in Weight: 67.13 kg Protocol: Brendan Stage: 2 Duration of Exercise: 4:36 Resting Heart Rate: 62 Resting Blood Pressure: 147/88 Maximum Achieved Heart Rate: 135 Maximum Achieved Blood Pressure: 155/98 85% PMHR: 137 100% PMHR: 161 METS: 5.8 Technologist Comment: Stress Test Results/Findings: This is a 61-year-old female with history of hypertension, CVA being evaluated for symptoms of chest pain and shortness of breath. Stress data: Baseline EKG showed sinus rhythm with normal CA interval and QRS duration. Blood pressure at rest was 147/88 with a pulse of 60 to. Patient walked on the Brendan protocol for 409 minutes achieving a maximal heart rate of 135 with a blood pressure of about 153/95. EKGs taken during and after the exercise did not reveal any significant changes ischemia. Occasional PVCs were noted. Echo data: Baseline echo images show normal wall motion and thickening. Exercise echo images showed augmentation of wall motion and thickening in all the segments. Final impression: #1. Negative stress test #2. Negative stress echo.
--- NOTE | 2021-07-23 13:52 | HP ---
HISTORY AND PHYSICAL This is a 61-year-old white female with hypertension, tachycardia, status post knee replacement, TIA, hypothyroidism, diastolic heart failure. She came in with palpitations over the past 3 days, heart rate into the 160s. Her recently in the last 6 months and she has a lot of health issues taking care of her son, who is really sick also. She is admitted. Stress test and treadmill have been ordered. She had a stress test 2018 which is negative. EKG shows poor R-wave progression. Chest x- ray is negative. Sodium 140, potassium 4.0, magnesium 2.0. She is on Dyazide, Synthroid, Lasix, gabapentin, Keflex. Fourteen-point review of systems otherwise negative. Medicines: See list. Reviewed. Labs reviewed. She has no acute distress. Pupils equal, round, reactive. Lungs are clear. Heart S1, S2. Abdomen is soft. Two plus edema. Skin warm and dry. Neurologic: Cranial nerves intact. ASSESSMENT: 1. Atypical chest pain. 2. Palpitations. 3. Hypertension. 4. Status post knee replacement. 5. Transient ischemic attack. 6. Hypothyroidism. Cardiac enzymes, echo, stress test, possibly discharge if all cleared. Check D-dimer. MMODL / IJN: [id number] /
[2021-07-23 13:56] VITALS: BP 129/79; PULSE 60; RESP 20; TEMP 98.1
[2021-07-23 17:04] LABS: Chol/HDL Ratio 4.65 Ratio; LDL Cholesterol,Calculated 124.3 mg/dL (0.0-131.0)
[2021-07-23] MEDS ORDERED: METOPROLOL TARTRATE 12.5 MG TAB PO SCH (21:00)
--- NOTE | 2021-07-25 08:44 | ECHOS ---
Stress Test Results/Findings: Exam Performed: stress echo exercise Exam Date: 07/23/21 Reason for Exam: Chest Pain Height: 4 ft 10 in Weight: 67.13 kg Protocol: Brendan Stage: 2 Duration of Exercise: 4:36 Resting Heart Rate: 62 Resting Blood Pressure: 147/88 Maximum Achieved Heart Rate: 135 Maximum Achieved Blood Pressure: 155/98 85% PMHR: 137 100% PMHR: 161 METS: 5.8 Technologist Comment: Stress Test Results/Findings: This is a 61-year-old female with history of hypertension, CVA being evaluated for symptoms of chest pain and shortness of breath. Stress data: Baseline EKG showed sinus rhythm with normal SD interval and QRS duration. Blood pressure at rest was 147/88 with a pulse of 60 to. Patient walked on the Brendan protocol for 409 minutes achieving a maximal heart rate of 135 with a blood pressure of about 153/95. EKGs taken during and after the exercise did not reveal any significant changes ischemia. Occasional PVCs were noted. Echo data: Baseline echo images show normal wall motion and thickening. Exercise echo images showed augmentation of wall motion and thickening in all the segments. Final impression: #1. Negative stress test #2. Negative stress echo. MAGALI
== END 2021-07-23 14:10 | disposition home or self-care (01) ==
LOC: EC 17:41 → 6NMEDSUR 20:40
PROVIDERS: ADMIT Family Medicine; ATTEND Family Medicine
DX: R07.89 Other chest pain (principal); R00.2 Palpitations; R00.0 Tachycardia, unspecified; R06.02 Shortness of breath; R61 Generalized hyperhidrosis; I11.0 Hypertensive heart disease with heart failure; I50.32 Chronic diastolic (congestive) heart failure; I48.91 Unspecified atrial fibrillation; I42.9 Cardiomyopathy, unspecified; E03.9 Hypothyroidism, unspecified; Z86.14 Personal history of Methicillin resistant Staphylococcus aureus infection; Z86.73 Personal history of transient ischemic attack (TIA), and cerebral infarction without residual deficits; Z96.652 Presence of left artificial knee joint; Z90.49 Acquired absence of other specified parts of digestive tract; Z79.890 Hormone replacement therapy; Z79.899 Other long term (current) drug therapy; Z79.1 Long term (current) use of non-steroidal anti-inflammatories (NSAID); Z88.2 Allergy status to sulfonamides; Z63.4 Disappearance and death of family member; Z83.3 Family history of diabetes mellitus; Z82.49 Family history of ischemic heart disease and other diseases of the circulatory system; Z82.5 Family history of asthma and other chronic lower respiratory diseases
CPT/HCPCS: 99285; 36415; 93005; 93306; 93270; 93351; 80061; 80053; 80048; 83735; 84484; 85025 ×2; 85610; 85730; 71046; G0378 ×2

== ENCOUNTER → 2021-10-18 | Outpatient (CLI) | payer OTHER ==
--- NOTE | 2021-10-18 14:56 | XR ---
EXAMINATION TYPE: XR Hip Complete LT DATE OF EXAM: 10/18/2021 CLINICAL HISTORY: pain TECHNIQUE: AP and frogleg views of the left hip are obtained. COMPARISON: None. FINDINGS: There is no acute fracture/dislocation evident. The joint space appears mildly narrowed. The overlying soft tissue appears unremarkable. IMPRESSION: 1. There is no acute fracture or dislocation.ICD 10 NO FRACTURE, INITIAL EVALUATION
== END | disposition home or self-care (01) ==
LOC: RADXRMAIN 14:26
PROVIDERS: ATTEND Family Medicine
DX: M25.552 Pain in left hip (principal)
CPT/HCPCS: 73502

== ENCOUNTER 2022-01-30 16:57 | Emergency (ER) | payer OTHER ==
[2022-01-30 17:11] VITALS: BP 156/91; PULSE 57; RESP 18; TEMP 98.9
[2022-01-30] MEDS ORDERED: HYDROcodone/APAP 5-325MG 1 EACH TAB PO STA (17:50)
--- NOTE | 2022-01-30 18:24 | XR ---
EXAMINATION TYPE: XR Hip Complete LT DATE OF EXAM: 01/30/2022 COMPARISON: 10/18/2021 HISTORY: Pain TECHNIQUE: 2 views FINDINGS: Acetabulum is intact. The proximal left femur is intact. No hip dysplasia. Sacroiliac joint is intact. IMPRESSION: Negative left hip exam. No change.
--- NOTE | 2022-01-30 18:25 | XR ---
EXAMINATION TYPE: XR femur LT DATE OF EXAM: 01/30/2022 COMPARISON: NONE HISTORY: Pain TECHNIQUE: 4 views FINDINGS: The hip joint is intact. There is a left knee prosthesis. Components are in anatomic positi on. No fracture seen. IMPRESSION: Negative left femur exam. No fracture.
--- NOTE | 2022-01-30 19:08 | US ---
EXAMINATION TYPE: US venous doppler duplex LE LT DATE OF EXAM: 01/30/2022 6:39 PM COMPARISON: NONE CLINICAL HISTORY: Left leg pain and swelling, no injury. left leg pain x 3 weeks that worsened today SIDE PERFORMED: Left TECHNIQUE: The lower extremity deep venous system is examined utilizing real time linear array sonog irina with graded compression, doppler sonography and color-flow sonography. VESSELS IMAGED: Common Femoral Vein Deep Femoral Vein Greater Saphenous Vein * Femoral Vein Popliteal Vein Small Saphenous Vein * Proximal Calf Veins (* superficial vessels) Left Leg: Prox and mid popliteal veins did not appear compressible, but appeared to have good blood flow. ? DVT IMPRESSION: No evidence of deep vein thrombosis in the left leg.
--- NOTE | 2022-01-30 19:55 | ED ---
Extremity Problem HPI - General Chief complaint: Extremity Problem,Nontraumatic Stated complaint: Left leg pain Time Seen by Provider: 01/30/22 17:27 Source: patient, RN notes reviewed Mode of arrival: wheelchair Limitations: no limitations - History of Present Illness Initial comments: This is a 61-year-old female who presents to the emergency department for left thigh pain. States that she has had pain in the left thigh for the last 3 weeks, however today the pain became unbearable to the point where she was unable to walk. She feels like the pain starts in the thigh and causes numbness down the rest of her leg. She's been taking ibuprofen with no relief, which she states is often helpful. Denies any strenuous bending or lifting and she's n ever experienced symptoms like this in the past. Denies any swelling or redness to the leg. She is not experiencing any chest pain or shortness of breath and she has no history of blood clots. She did have a left knee replacement 5-6 years ago. Denies any fevers, chills, sore throat, cough, dyspnea, chest pain, palpitations, abdominal pain, nausea, vomiting, diarrhea, back pain, or h eadaches. MD Complaint: extremity pain Onset/Timin -: week(s) Location: left, upper extremity History of Same: No - Related Data Home Medications Medication Instructions Recorded Confirmed Ergocalciferol [Vitamin D2 (1250 1,250 mcg PO CALDERÓN 07/22/21 11/24/21 Mcg = 80769 Iu)] Furosemide [Lasix] 20 mg PO DAILY 07/22/21 11/24/21 Gabapentin 600 mg PO BID 07/22/21 11/24/21 HYDROcodone/APAP 7.5-325MG [Adair 1 tab PO Q12H PRN 07/22/21 11/24/21 7.5-325] Ibuprofen [Motrin] 600 mg PO Q12H 07/22/21 11/24/21 Levothyroxine Sodium [Synthroid] 100 mcg PO DAILY 07/22/21 11/24/21 Ascorbic Acid [Vitamin C] 1,000 mg PO DAILY 11/24/21 11/24/21 Calcium Carbonate [Calcium] 600 mg PO DAILY 11/24/21 11/24/21 Metoprolol Tartrate [Lopressor] 25 mg PO BID 11/24/21 11/24/21 Vitamin B Complex 1 cap PO DAILY 11/24/21 11/24/21 Previous Rx's Medication Instructions Recorded Cholestyramine (with Sugar) 4 gm PO DAILY #14 packet 11/27/21 [Cholestyramine Packet] Ciprofloxacin HCl [Cipro] 500 mg PO Q12HR 7 Days #14 tab 11/27/21 Ondansetron Odt [Zofran Odt] 4 mg PO Q8HR PRN #14 tab 11/27/21 metroNIDAZOLE [Flagyl] 500 mg PO TID #21 tab 11/27/21 HYDROcodone/APAP 5-325MG [Adair 1 tab PO Q6HR PRN 3 Days #12 tab 01/30/22 5-325] predniSONE 50 mg PO Q24H 5 Days #5 tablet 01/30/22 Allergies Allergy/AdvReac Type Severity Reaction Status Date / Time sulfamethoxazole Allergy Rash/Hives Verified 01/30/22 17:11 [From Bactrim] trimethoprim [From Bactrim] Allergy Rash/Hives Verified 01/30/22 17:11 Review of Systems ROS Statement: Those systems with pertinent positive or pertinent negative responses have been documented in the HPI. ROS Other: All systems not noted in ROS Statement are negative. Past Medical History Past Medical History: Atrial Fibrillation, Asthma, Thyroid Disorder Additional Past Medical History / Comment(s): a-fib after knee replacment (proximal) History of Any Multi-Drug Resistant Organisms: MRSA Date of last positivie culture/infection: 2014 MDRO Source:: STOMACH Past Surgical History: Cholecystectomy, Orthopedic Surgery Additional Past Surgical History / Comment(s): left knee replacment Past Anesthesia/Blood Transfusion Reactions: No Reported Reaction Past Psychological History: No Psychological Hx Reported Smoking Status: Never smoker Past Alcohol Use History: None Reported Past Drug Use History: None Reported - Past Family History Father Family Medical History: COPD, Diabetes Mellitus Additional Family Medical History / Comment(s): enalrged heart General Exam Limitations: no limitations General appearance: alert, in no apparent distress Head exam: Present: atraumatic, normocephalic, normal inspection Respiratory exam: Present: normal lung sounds bilaterally. Absent: respiratory distress, wheezes, rales, rhonchi, stridor Cardiovascular Exam: Present: regular rate, normal rhythm, normal heart sounds. Absent: systolic murmur, diastolic murmur, rubs, gallop, clicks Extremities exam: Present: other (No swelling, erythema, or heat to the entire left lower extremity. There is minor tenderness to palpation on the superior aspect of the left thigh. Negative Homans sign. 2+ dorsalis pedis and tibialis posterior pulses bilaterally. Capillary refill less than 1 second.) Neurological exam: Present: alert, oriented X3, CN II-XII intact Psychiatric exam: Present: normal affect, normal mood Skin exam: Present: warm, dry, intact, normal color. Absent: rash Course Vital Signs 01/30/22 17:08 Temperature 98.9 F Pulse Rate 57 L Respiratory 18 Rate Blood Pressure 156/91 O2 Sat by Pulse 100 Oximetry Medical Decision Making - Medical Decision Making This is a 61-year-old female who presents to the emergency department for left leg pain. X-ray of the left hip and femur were obtained revealing no acute osseous abnormalities. Duplex ultrasound of the left lower extremity obtained as well. This revealed good blood flow however the veins were not compressible. Findings discussed with the patient and ED attending, Dr. Flores, who evaluated the patient alongside of me. He advised that given that there are no overlying skin changes or physical exam findings of a DVT otherwise, this is likely not the case and there are no indications start her on a blood thinner at this time. He also advised that she may need a repeat ultrasound in one week if symptoms do not improve, in the event she is in the very early stages of a DVT with the noncompressible veins. She was given very strict return parameters, in that if she develops skin changes such as erythema, swelling, or increased heat, she should return immediately. She is also advised of shortness of breath or chest pain that can occur if a blood clot were to spread from the leg to the lungs. P rescription for prednisone and 3 day course of Adair provided. Advised to keep the leg elevated and apply ice or heat. She will follow up with her primary care provider later this week to discuss a repeat ultrasound if indicated or any additional testing. Return precautions reviewed in depth, the patient is instructed to return to the emergency department with any new, worsening, or concerning symptoms. Patient verbalized understanding. This case was discussed in detail with the attending ED physician. Presentation, findings, and treatment plan discussed in detail as well. - Radiology Data Radiology results: report reviewed, image reviewed Disposition Clinical Impression: Left thigh pain Disposition: HOME SELF-CARE Instructions (If sedation given, give patient instructions): Leg Pain (ED) Additional Instructions: Return to the emergency department with any new, worsening, or concerning symptoms, especially if the leg becomes red, hot, or swollen, or if you develop chest pain or shortness of breath. Take the prednisone daily for 5 days. Use the Adair sparingly when your pain is the most severe. Keep the leg elevated. You may try applying heat or ice, whichever you find more beneficial. Follow up with your primary care provider in 1-2 days and discuss a repeat ultrasound in 1 week from today. Prescriptions: HYDROcodone/APAP 5-325MG [Adair 5-325] 1 tab PO Q6HR PRN 3 Days #12 tab PRN Reason: Pain predniSONE 50 mg PO Q24H 5 Days #5 tablet Is patient prescribed a controlled substance at d/c from ED?: Yes When asked, does pt state using other controlled substances?: Yes If prescribed controlled substance>3 days was MAPS reviewed?: Prescribed <3 Days Referrals: Lawrence Han MD [Primary Care Provider] - 1-2 days
== END 2022-01-30 20:03 | disposition home or self-care (01) ==
LOC: EC 16:57
DX: M79.652 Pain in left thigh (principal); J44.9 Chronic obstructive pulmonary disease, unspecified; E11.9 Type 2 diabetes mellitus without complications; Z79.899 Other long term (current) drug therapy; Z88.2 Allergy status to sulfonamides
CPT/HCPCS: 73502; 99284

== ENCOUNTER 2022-04-25 08:36 | Day surgery (SDC) | payer OTHER ==
[2022-04-22 16:07] VITALS: BMI 30.9
[~2022-04-25 08:36] MED LIST changes: +LACTATED RINGERS 1,000 ML IV SCH; +LIDOCAINE 1% (10MG/ML) FOR IV START INTRADERMA PRN; -REGADENOSON 0.4 MG/5 ML SYRINGE IV ONE
[2022-04-25] MEDS ORDERED: LACTATED RINGERS 1,000 ML IV ONE (09:05)
[2022-04-25 09:08] VITALS: TEMP 98
[2022-04-25] MEDS ORDERED: PROPOFOL 10 MG/ML 20 ML VIAL IV ONE (10:29)
--- NOTE | 2022-04-25 10:39 | P.GSHP ---
History of Present Illness H&P Date: 04/25/22 Chief Complaint: Screening colonoscopy, change in bowel habits Is a 62-year-old female presents today for colonoscopy. Patient has had change in bowel habits increasing constipation. Past Medical History Past Medical History: Atrial Fibrillation, Asthma, Thyroid Disorder Additional Past Medical History / Comment(s): a-fib after knee replacment (proximal) History of Any Multi-Drug Resistant Organisms: MRSA Date of last positivie culture/infection: 2014 MDRO Source:: abdomen Past Surgical History: Cholecystectomy, Orthopedic Surgery Additional Past Surgical History / Comment(s): left knee replacment,eye surgery,carmine knee arthroscopies,D&Cx2 Past Anesthesia/Blood Transfusion Reactions: No Reported Reaction Additional Past Anesthesia/Blood Transfusion Reaction / Comment(s): a-fib after knee replacment (proximal). no hx blood transfusions Smoking Status: Never smoker - Past Family History Father Family Medical History: COPD, Diabetes Mellitus Additional Family Medical History / Comment(s): enalrged heart Medications and Allergies Home Medications Medication Instructions Recorded Confirmed Type Ergocalciferol [Vitamin D2 (1250 1,250 mcg PO CALDERÓN 07/22/21 04/22/22 History Mcg = 14118 Iu)] Gabapentin 600 mg PO BID PRN 07/22/21 04/22/22 History Ibuprofen [Motrin] 600 mg PO Q12H PRN 07/22/21 04/22/22 History Levothyroxine Sodium [Synthroid] 100 mcg PO HS 07/22/21 04/22/22 History Calcium Carbonate [Calcium] 600 mg PO DAILY 11/24/21 04/22/22 History Metoprolol Tartrate [Lopressor] 25 mg PO BID 11/24/21 04/22/22 History Vitamin B Complex 1 cap PO DAILY 11/24/21 04/22/22 History Glucosamine-Chondr 500-400Mg 1 each PO DAILY 04/22/22 04/22/22 History Allergies Allergy/AdvReac Type Severity Reaction Status Date / Time sulfamethoxazole Allergy Rash/Hives Verified 04/22/22 15:58 [From Bactrim] trimethoprim [From Bactrim] Allergy Rash/Hives Verified 04/22/22 15:58 Surgical - Exam Vital Signs Temp Pulse Resp BP Pulse Ox 98 F 89 18 161/88 100 04/25/22 09:07 04/25/22 09:07 04/25/22 09:07 04/25/22 09:07 04/25/22 09:07 - General well developed, well nourished, no distress - Eyes PERRL - ENT normal pinna - Neck no masses - Respiratory normal expansion - Cardiovascular Rhythm: regular - Abdomen Abdomen: soft, non tender Assessment and Plan Assessment: History of change in bowel habits, we'll perform screening colonoscopy
[2022-04-25 10:56] VITALS: RESP 16
[2022-04-25 11:17] VITALS: BP 166/93; PULSE 57
--- NOTE | 2022-05-02 08:30 | P.OP ---
Date of Procedure: 04/25/22 Preoperative Diagnosis: Screening colonoscopy Postoperative Diagnosis: Possible rectal inflammation pathology pending Procedure(s) Performed: Colonoscopy Anesthesia: MAC Surgeon: Carlos A Burciaga Pathology: other (Rectum) Condition: stable Disposition: PACU Description of Procedure: Patient's placed on the endoscopy table in the lateral position. She received IV sedation. Digital rectal exam no abnormalities. Flexible colonoscope was then placed patient anus and passed throughout the entire colon. Ileocecal valve was visualized. The cecum, ascending and transverse colon normal. Descending and sigmoid colon scope was brought back the rectum and this was minimal inflamed. A biopsies performed. This was performed: Forcep. Scope was withdrawn for patient.
== END 2022-04-25 11:55 | disposition home or self-care (01) ==
LOC: ORWHC2ENDO 08:36
PROVIDERS: ATTEND Surgery
DX: R19.4 Change in bowel habit (principal); I48.91 Unspecified atrial fibrillation; J45.909 Unspecified asthma, uncomplicated; E07.9 Disorder of thyroid, unspecified; Z90.49 Acquired absence of other specified parts of digestive tract; Z96.652 Presence of left artificial knee joint; Z79.899 Other long term (current) drug therapy; Z98.890 Other specified postprocedural states; Z83.3 Family history of diabetes mellitus; Z79.1 Long term (current) use of non-steroidal anti-inflammatories (NSAID)
CPT/HCPCS: 88305; 45380; J2704

== ENCOUNTER 2022-11-02 23:24 | Observation (INO) | payer OTHER ==
--- NOTE | 2022-11-02 23:43 | ED ---
Chest Pain HPI - General Chief Complaint: Chest Pain Stated Complaint: Chest pain Time Seen by Provider: 11/02/22 23:37 Source: patient, RN notes reviewed, old records reviewed Mode of arrival: ambulatory Limitations: no limitations - History of Present Illness Initial Comments: This is a 62-year-old female to the emergency department today. This patient presents today for evaluation for evaluation regards for chest pain. Patient has history of heart disease history of chest pain history of stress test but no heart catheterization. Patient has significant lower extremity edema and low heart rate which has not been a problem for the past. Patient comes in today for persistent chest pain and heaviness on the chest feeling some redness sitting on her chest MD Complaint: chest pain -: hour(s) Onset: during rest Pain Location: substernal, left chest Pain Radiation: LUE Severity: moderate Severity scale (1-10): 7 Quality: tightness, heaviness Consistency: constant Improves With: nothing Worsens With: exertion Anginal Symptoms: sense of impending doom Other Symptoms: palpitations Treatments Prior to Arrival: none - Related Data Home Medications Medication Instructions Recorded Confirmed Ergocalciferol [Vitamin D2 (1250 1,250 mcg PO CALDERÓN 07/22/21 11/03/22 Mcg = 62000 Iu)] Gabapentin 600 mg PO BID 07/22/21 11/03/22 HYDROcodone/APAP 5-325MG [[place] 1 tab PO Q12H PRN 11/03/22 11/03/22 5-325] clonazePAM [Klonopin ODT] 0.25 mg PO DAILY PRN 11/03/22 11/03/22 Previous Rx's Medication Instructions Recorded Acetaminophen Tab [Tylenol] 650 mg PO Q6HR PRN tab 11/03/22 Atorvastatin [Lipitor] 20 mg PO HS 90 Days #90 tab 11/03/22 Budesonide [Pulmicort] 0.5 mg INHALATION RT-BID 30 Days 11/03/22 #60 ml Ipratropium-Albuterol Nebulize 3 ml INHALATION RT-QID 30 Days 11/03/22 [Duoneb 0.5 mg-3 mg/3 ml Soln] #120 each Levothyroxine Sodium [Synthroid] 112 mcg PO DAILY@0630 90 Days #90 11/03/22 tab Losartan-Hctz 50-12.5 mg [Hyzaar 1 each PO DAILY 90 Days #90 tab 07/30/23 50-12.5] Metoprolol Tartrate [Lopressor] 12.5 mg PO BID 30 Days #60 tab 11/03/22 Allergies Allergy/AdvReac Type Severity Reaction Status Date / Time sulfamethoxazole Allergy Rash/Hives Verified 11/03/22 12:21 [From Bactrim] trimethoprim [From Bactrim] Allergy Rash/Hives Verified 11/03/22 12:21 Review of Systems ROS Statement: Those systems with pertinent positive or pertinent negative responses have been documented in the HPI. ROS Other: All systems not noted in ROS Statement are negative. EKG Findings - EKG Comments: EKG Findings:: EKG sinus 52 MT 190 QRS 92 QTC 409 - EKG Results: EKG: interpreted by ALICIA Past Medical History Past Medical History: Atrial Fibrillation, Asthma, Thyroid Disorder Additional Past Medical History / Comment(s): a-fib after knee replacment (proximal) History of Any Multi-Drug Resistant Organisms: MRSA Date of last positivie culture/infection: 2014 MDRO Source:: abdomen Past Surgical History: Cholecystectomy, Orthopedic Surgery Additional Past Surgical History / Comment(s): left knee replacment,eye surgery,carmine knee arthroscopies,D&Cx2 Past Anesthesia/Blood Transfusion Reactions: No Reported Reaction Additional Past Anesthesia/Blood Transfusion Reaction / Comment(s): a-fib after knee replacment (proximal). no hx blood transfusions Past Psychological History: No Psychological Hx Reported Smoking Status: Never smoker Past Alcohol Use History: None Reported Past Drug Use History: None Reported - Past Family History Father Family Medical History: COPD, Diabetes Mellitus Additional Family Medical History / Comment(s): enalrged heart General Exam Limitations: no limitations General appearance: alert, in no apparent distress Head exam: Present: atraumatic, normocephalic, normal inspection Eye exam: Present: normal appearance, PERRL, EOMI. Absent: scleral icterus, conjunctival injection, periorbital swelling ENT exam: Present: normal exam, mucous membranes moist Neck exam: Present: normal inspection. Absent: tenderness, meningismus, lymphadenopathy Respiratory exam: Present: normal lung sounds bilaterally. Absent: respiratory distress, wheezes, rales, rhonchi, stridor Cardiovascular Exam: Present: normal rhythm, bradycardia, irregular rhythm, normal heart sounds. Absent: systolic murmur, diastolic murmur, rubs, gallop, clicks GI/Abdominal exam: Present: soft, normal bowel sounds. Absent: distended, tenderness, guarding, rebound, rigid Extremities exam: Present: normal inspection, full ROM, normal capillary refill. Absent: tenderness, pedal edema, joint swelling, calf tenderness Back exam: Present: normal inspection Neurological exam: Present: alert, oriented X3, CN II-XII intact Psychiatric exam: Present: normal affect, normal mood Skin exam: Present: warm, dry, intact, normal color. Absent: rash Course Vital Signs 11/02/22 11/03/22 11/03/22 23:26 00:29 04:00 Temperature 97.9 F 98.6 F Pulse Rate 53 L 52 L 54 L Pulse Rate [ Radial] Respiratory 18 16 16 Rate Blood Pressure 143/71 152/83 151/81 Blood Pressure [Left Arm] O2 Sat by Pulse 98 98 98 Oximetry 11/03/22 11/03/22 06:50 07:00 Temperature 98.1 F 97.8 F Pulse Rate 51 L Pulse Rate [ 50 L Radial] Respiratory 16 18 Rate Blood Pressure 150/86 Blood Pressure 161/83 [Left Arm] O2 Sat by Pulse 97 100 Oximetry - Reevaluation(s) Reevaluation #1: 11/03/22 04:07 Medical record is reviewed Reevaluation #2: 11/03/22 04:07 Patient remains a chest pain here in the ER Reevaluation #3: 11/03/22 04:07 Patient informed results questions answered Reevaluation #4: 11/03/22 04:07 Was pt. sent in by a medical professional or institution (, PA, LEAD SOFTWARE DEVELOPMENT ENGINEER, urgent care, hospital, or senior care...) When possible be specific @ -no Did you speak to anyone other than the patient for history (EMS, parent, family, police, friend...)? What history was obtained from this source @ -no Did you review nursing and triage notes (agree or disagree)? Why? @ -agree Are old charts reviewed (outside hosp., previous admission, EMS record, old EKG, old radiological studies, urgent care reports/EKG's, senior care records)? Report findings @ -yes Differential Diagnosis (chest pain, altered mental status, abdominal pain women, abdominal pain men, vaginal bleeding, weakness, fever, dyspnea, syncope, headache, dizziness, GI bleed, back pain, seizure, CVA, palpatations, mental health, musculoskeletal)? @ -prior EKG interpreted by me (3pts min.). @ -yes X-rays interpreted by me (1pt min.). @ -yes CT interpreted by me (1pt min.). @ -no U/S interpreted by me (1pt. min.). @ -no What testing was considered but not performed or refused? (CT, X-rays, U/S, labs)? Why? @ -none What meds were considered but not given or refused? Why? @ -none Did you discuss the management of the patient with other professionals (professionals i.e. Dr., PA, LEAD SOFTWARE DEVELOPMENT ENGINEER, lab, RT, psych nurse, social worker masters, cheese cutter, teacher, supervisor dog license officer, child support case officer)? Give summary @ -no Was smoking cessation discussed for >3mins.? @ -no Was critical care preformed (if so, how long)? @ -yes31 Were there social determinants of health that impacted care today? How? (Homelessness, low income, unemployed, alcoholism, drug addiction, transportation, low edu. Level, literacy, decrease access to med. care, fpc, rehab)? @ -none Was there de-escalation of care discussed even if they declined (Discuss DNR or withdrawal of care, Hospice)? DNR status @ -no What co-morbidities impacted this encounter? (DM, HTN, Smoking, COPD, CAD, Cancer, CVA, ARF, Chemo, Hep., AIDS, mental health diagnosis, sleep apnea, morbid obesity)? @ -none Was patient admitted / discharged? Hospital course, mention meds given and route, prescriptions, significant lab abnormalities, going to OR and other pertinent info. @ - 62 female to be admitted for chest pain rule out ACS patient has history of atrial fibrillation currently bradycardic and she will be admitted for cardiology evaluation and treatment Admitted Undiagnosed new problem with uncertain prognosis? @ -no Drug Therapy requiring intensive monitoring for toxicity (Heparin, Nitro, Insulin, Cardizem)? @ -no Were any procedures done? @ -no Diagnosis/symptom? @ -Chest pain rule out ACS Acute, or Chronic, or Acute on Chronic? @ -Acute Uncomplicated (without systemic symptoms) or Complicated (systemic symptoms)? @ -Complicated Side effects of treatment? @ -no Exacerbation, Progression, or Severe Exacerbation? @ -exacerbation Poses a threat to life or bodily function? How? (Chest pain, [place], [place], pneumonia, PE, COPD, DKA, ARF, appy, cholecystitis, CVA, Diverticulitis, Homicidal, Suicidal, threat to staff... and all critical care pts) @ -yes if acs Reevaluation #5: 11/03/22 04:07 Differential Chest Pain: Stable Angina, Unstable Angina, STEMI, NSTEMI Aortic Dissection, Pneumothorax, Musculoskeletal, Esophageal Spasm GERD, Cholecystitis, Pancreatitis, Zoster, this is not meant to be an all-inclusive list. - Consultations Consultation #1: Spoke with Dr. Romeo who agrees to admit the patient Chest Pain MDM - MDM 62 female to be admitted for chest pain rule out ACS patient has history of atrial fibrillation currently bradycardic and she will be admitted for cardiology evaluation and treatment Critical Care Time Critical Care Time: Yes Total Critical Care Time: 31 Disposition Clinical Impression: Chest pain, Palpitations, Bradycardia Disposition: ADMITTED IP TO THIS [facility] Condition: Undetermined Is patient prescribed a controlled substance at d/c from ED?: No Time of Disposition: 01:30
[2022-11-03 00:18] LABS: ALT 18 U/L (4-34); AST 22 U/L (14-36); African American GFR (CKD) >90 (>60 ml/min/1.73 sqM); Albumin 3.7 g/dL (3.5-5.0); Alkaline Phosphatase 115 U/L (38-126); Anion Gap 8 mmol/L; Blood Urea Nitrogen 17 mg/dL (7-17); Calcium 8.8 mg/dL (8.4-10.2); Carbon Dioxide 21 mmol/L (22-30); Chloride 108 mmol/L (98-107); Glucose 90 mg/dL (74-99); Lipase 94 U/L (23-300); Non-African American GFR(CKD) >90 (>60 ml/min/1.73 sqM); Potassium 3.5 mmol/L (3.5-5.1); Sodium 137 mmol/L (137-145); Total Bilirubin 0.4 mg/dL (0.2-1.3); Total Protein 6.8 g/dL (6.3-8.2)
[2022-11-03 00:25] LABS: Basophils # (A) 0.1 k/uL (0-0.2); Basophils % (A) 1 %; Eosinophils # (A) 0.4 k/uL (0-0.7); Eosinophils % (A) 4 %; HCT 37.5 % (34.0-46.0); HGB 12.5 gm/dL (11.4-16.0); Lymphocytes # (A) 3.2 k/uL (1.0-4.8); Lymphocytes % (A) 35 %; MCH 30.4 pg (25.0-35.0); MCHC 33.4 g/dL (31.0-37.0); MCV 91.1 fL (80.0-100.0); Mean Platelet Volume 8.5; Monocytes # (A) 0.6 k/uL (0-1.0); Monocytes % (A) 6 %; NT-Pro-B-Type Natriuretic Pept 376 pg/mL; Neutrophils # (A) 4.9 k/uL (1.3-7.7); Neutrophils % (A) 53 %; Platelet Count 240 k/uL (150-450); RBC 4.12 m/uL (3.80-5.40); WBC 9.4 k/uL (3.8-10.6)
[2022-11-03 00:38] LABS: INR 0.9 (<1.2); Partial Thromboplastin Time 20.4 sec (22.0-30.0); Prothrombin Time 10.1 sec (9.0-12.0)
[2022-11-03] MEDS ORDERED: MORPHINE SULFATE 4 MG/ML SYRINGE IVP STA (01:35)
[2022-11-03] MEDS ORDERED: ONDANSETRON 4 MG/2 ML VIAL IVP PRN (01:35)
[2022-11-03] MEDS ORDERED: MORPHINE SULFATE 4 MG/ML SYRINGE IV PRN (01:35)
[2022-11-03] MEDS ORDERED: ACETAMINOPHEN TAB 325 MG TAB PO PRN (01:35)
[2022-11-03] MEDS ORDERED: NALOXONE 0.4 MG/ML 1 ML VIAL IV PRN (01:35)
--- NOTE | 2022-11-03 01:54 | XR ---
EXAM: XR Chest, 1 View CLINICAL HISTORY: ITS.REASON XR Reason: chest pain TECHNIQUE: Frontal view of the chest. COMPARISON: No relevant prior studies available. FINDINGS: Lungs: Unremarkable. No consolidation. Pleural space: Unremarkable. No pneumothorax. Heart: Unremarkable. No cardiomegaly. Mediastinum: Unremarkable. Bones/joints: Unremarkable. IMPRESSION: Normal chest x-ray.
[2022-11-03] MEDS: SODIUM CHLORIDE 0.9% 1,000 ML IV SCH ×2 (02:05→17:01)
[2022-11-03] MEDS ORDERED: GABAPENTIN 300 MG CAP PO PRN (11:08)
[2022-11-03] MEDS: LOSARTAN-HCTZ 50-12.5 MG 1 EACH TAB PO SCH (12:45)
[2022-11-03 13:29] LABS: T4, Free (Free Thyroxine) 1.02 ng/dL (0.78-2.19)
[2022-11-03] MEDS ORDERED: ERGOCALCIFEROL 1,250 MCG (50,000 IU) CAPSULE PO SCH (14:30)
[2022-11-03] MEDS ORDERED: clonazePAM 0.5 MG TAB PO PRN (14:30)
--- NOTE | 2022-11-03 15:01 | P.CRDCN ---
History of Present Illness Consult date: 11/03/22 History of present illness: HISTORY OF PRESENTING ILLNESS 62 year old female with past medical history of hypertension, osteoarthritis with knee replacements 6 years ago, TIA at the age of 51 and hypothyroidism. She presented to the hospital with symptoms of right lower chest pain. Symptoms started a day prior to the ER. This pain started when she was resting. She describes her pain to be sharp. This pain is constant. There is no particular aggravating or alleviating factors. This pain is not related to activity or rest. There is no associated diaphoresis, nausea or vomiting with this pain. There is no associated shortness of breath palpitations or lightheadedness or dizziness Echo from July 2021 shows EF 55-60% with no significant valvular dysfunction. Treadmill stress test, walked for 4 minutes, no echo evidence of ischemia. DIAGNOSTICS EKG reveals sinus rhythm with no significant ST-T wave changes diagnostic for ischemia. Chest xray lungs are clear with no signs of primary condition. Laboratory reviewed, no significant abnormalities appreciated. Troponins were negative. Current cardiac medications include hydrochlorothiazide, triamterene, metoprolol 25 mg twice a day REVIEW OF SYSTEMS At the time of my exam: CONSTITUTIONAL: Denies fever or chills. CARDIOVASCULAR: Denies chest pain, shortness of breath, orthopnea, PND or palpitations. RESPIRATORY: Denies cough. GASTROINTESTINAL: Denies abdominal pain, diarrhea, constipation, nausea or vomiting. MUSCULOSKELETAL: Denies myalgias. NEUROLOGIC: Denies numbness, tingling or weakness. ENDOCRINE: Denies fatigue, weight change, polydipsia or polyurina. GENITOURINARY: Denies burning, hematuria or urgency with micturation. HEMATOLOGIC: Denies history of anemia or bleeding. PHYSICAL EXAMINATION Vital signs reviewed. CONSTITUTIONAL: No apparent distress. HEENT: Head is normocephalic. Pupils are equal, round. Sclerae anicteric. Mucous membranes of the mouth are moist. No JVD. No carotid bruit. CHEST EXAMINATION: Lungs are clear to auscultation. No chest wall tenderness is noted on palpation or with deep breathing. HEART EXAMINATION: Regular rate and rhythm. S1, S2 heard. No murmurs, gallops or rub. ABDOMEN: Soft, nontender. Positive bowel sounds. EXTREMITIES: 2+ peripheral pulses, no lower extremity edema and no calf tenderness. NEUROLOGIC EXAMINATION: Patient is awake, alert and oriented x3. ASSESSMENT Atypical chest pain. Rule out of ACS. Pain is most likely noncardiac Essential hypertension Prior history of TIA PLAN Continue metoprolol 25 mg daily Continue her antihypertensive regimen Start lovastatin 20 mg and aspirin 81 mg due to her prior history of TIA and her cardiac risk factors No further cardiac testing needed at this time Patient should follow up in clinic with me. She would benefit from a repeat dobutamine echocardiographic stress test as an outpatient Past Medical History Past Medical History: Atrial Fibrillation, Asthma, Thyroid Disorder Additional Past Medical History / Comment(s): a-fib after knee replacment (proximal) History of Any Multi-Drug Resistant Organisms: MRSA Date of last positivie culture/infection: 2014 MDRO Source:: abdomen Past Surgical History: Cholecystectomy, Orthopedic Surgery Additional Past Surgical History / Comment(s): left knee replacment,eye surgery,carmine knee arthroscopies,D&Cx2 Past Anesthesia/Blood Transfusion Reactions: No Reported Reaction Additional Past Anesthesia/Blood Transfusion Reaction / Comment(s): a-fib after knee replacment (proximal). no hx blood transfusions Past Psychological History: No Psychological Hx Reported Smoking Status: Never smoker Past Alcohol Use History: None Reported Past Drug Use History: None Reported - Past Family History Father Family Medical History: COPD, Diabetes Mellitus Additional Family Medical History / Comment(s): enalrged heart Medications and Allergies Home Medications Medication Instructions Recorded Confirmed Type Ergocalciferol [Vitamin D2 (1250 1,250 mcg PO HIGGINBOTHAM 07/22/21 11/03/22 History Mcg = 73888 Iu)] Gabapentin 600 mg PO BID 07/22/21 11/03/22 History Levothyroxine Sodium [Synthroid] 100 mcg PO HS 07/22/21 11/03/22 History Metoprolol Tartrate [Lopressor] 25 mg PO BID 11/24/21 11/03/22 History Fluticasone Propion/Salmeterol 2 puff INHALATION RT-BID 11/03/22 11/03/22 History [Advair 250-50 Diskus] HYDROcodone/APAP 5-325MG [[place] 1 tab PO Q12H PRN 11/03/22 11/03/22 History 5-325] Ibuprofen [Motrin] 800 mg PO BID PRN 11/03/22 11/03/22 History Triamterene-Hctz 37.5-25Mg 1 tab PO BID 11/03/22 11/03/22 History [Maxzide 37.5-25] clonazePAM [Klonopin ODT] 0.25 mg PO DAILY PRN 11/03/22 11/03/22 History Allergies Allergy/AdvReac Type Severity Reaction Status Date / Time sulfamethoxazole Allergy Rash/Hives Verified 11/03/22 12:21 [From Bactrim] trimethoprim [From Bactrim] Allergy Rash/Hives Verified 11/03/22 12:21 Physical Exam Vitals: Vital Signs Temp Pulse Pulse Resp BP BP Pulse Ox 11/03/22 14:33 98.1 F 52 L 18 133/75 99 11/03/22 09:41 50 L 11/03/22 08:40 49 L 18 152/84 98 11/03/22 07:00 97.8 F 50 L 18 161/83 100 11/03/22 06:50 98.1 F 51 L 16 150/86 97 11/03/22 04:00 98.6 F 54 L 16 151/81 98 11/03/22 00:29 52 L 16 152/83 98 11/02/22 23:26 97.9 F 53 L 18 143/71 98 Intake and Output 11/02/22 11/03/22 11/03/22 22:59 06:59 14:59 Other: # Voids 1 Weight 69.4 kg 69.4 kg Results 11/03/22 00:03 11/03/22 00:03 Cardiac Enzymes 11/03/22 11/03/22 11/03/22 Range/Units 00:03 00:03 05:03 AST 22 (14-36) U/L Troponin I <0.012 <0.012 (0.000-0.034) ng/mL 11/03/22 Range/Units 07:56 AST (14-36) U/L Troponin I <0.012 (0.000-0.034) ng/mL Coagulation 11/03/22 Range/Units 00:03 PT 10.1 (9.0-12.0) sec APTT 20.4 L (22.0-30.0) sec CBC 11/03/22 Range/Units 00:03 WBC 9.4 (3.8-10.6) k/uL RBC 4.12 (3.80-5.40) m/uL Hgb 12.5 (11.4-16.0) gm/dL Hct 37.5 (34.0-46.0) % Plt Count 240 (150-450) k/uL Comprehensive Metabolic Panel 11/03/22 Range/Units 00:03 Sodium 137 (137-145) mmol/L Potassium 3.5 (3.5-5.1) mmol/L Chloride 108 H (98-107) mmol/L Carbon Dioxide 21 L (22-30) mmol/L BUN 17 (7-17) mg/dL Creatinine 0.65 (0.52-1.04) mg/dL Glucose 90 (74-99) mg/dL Calcium 8.8 (8.4-10.2) mg/dL AST 22 (14-36) U/L ALT 18 (4-34) U/L Alkaline Phosphatase 115 (38-126) U/L Total Protein 6.8 (6.3-8.2) g/dL Albumin 3.7 (3.5-5.0) g/dL Current Medications Generic Name Dose Route Start Last Admin Trade Name Freq PRN Reason Stop Dose Admin Acetaminophen 650 mg 11/03/22 01:35 Acetaminophen Tab 325 Mg Tab PO Q6HR PRN Mild Pain or Fever > 100.5 Hydrocodone Bitart/Acetaminophen 1 each 11/03/22 14:30 Hydrocodone/Apap 5-325mg 1 Each Tab PO Q12H PRN Pain Budesonide/Formoterol Fumarate 2 puff 11/03/22 20:00 Symbicort 80-4.5 Mcg Inhaler INHALATION RT-BID FÁTIMA Clonazepam 0.25 mg 11/03/22 14:30 Clonazepam 0.5 Mg Tab PO DAILY PRN Anxiety Ergocalciferol 1,250 mcg 11/03/22 14:30 Ergocalciferol 1,250 Mcg (50,000 Iu) Capsule PO Higginbotham@0900 FÁTIMA Gabapentin 600 mg 11/03/22 11:08 Gabapentin 300 Mg Cap PO BID PRN Pain HCTZ/Losartan Potassium 1 each 11/03/22 11:30 11/03/22 12:45 Losartan-Hctz 50-12.5 Mg 1 Each Tab PO 1 each DAILY FÁTIMA Administration Sodium Chloride 1,000 mls @ 75 mls/hr 11/03/22 01:45 11/03/22 02:05 Saline 0.9% IV 75 mls/hr .[id number] FÁTIMA Administration Levothyroxine Sodium 100 mcg 11/03/22 21:00 Levothyroxine 100 Mcg Tab PO HS FÁTIMA Metoprolol Tartrate 12.5 mg 11/03/22 21:00 Metoprolol Tartrate 12.5 Mg Tab PO BID FÁTIMA Morphine Sulfate 4 mg 11/03/22 01:35 11/03/22 06:57 Morphine Sulfate 4 Mg/Ml Syringe IV 4 mg Q4HR PRN Administration Severe Pain (Scale 7 to 10) Naloxone HCl 0.2 mg 11/03/22 01:35 Naloxone 0.4 Mg/Ml 1 Ml Vial IV Q2M PRN Opioid Reversal Ondansetron HCl 4 mg 11/03/22 01:35 Ondansetron 4 Mg/2 Ml Vial IVP Q8HR PRN Nausea And Vomiting Intake and Output 11/02/22 11/03/22 11/03/22 22:59 06:59 14:59 Other: # Voids 1 Weight 69.4 kg 69.4 kg Patient Weight 11/04/22 06:59 Weight 69.4 kg 11/03/22 00:03 11/03/22 00:03
--- NOTE | 2022-11-03 16:03 | CT ---
EXAMINATION TYPE: CT angio chest CT DLP: 378.6 mGycm, Automated exposure control for dose reduction was used. DATE OF EXAM: 11/03/2022 3:50 PM COMPARISON: . Chest radiograph from same day. CLINICAL INDICATION:Female, 62 years old with history of elevated d-dimer; elevated d-dimer TECHNIQUE/CONTRAST: CTA scan of the thorax is performed with IV Contrast, patient injected with 80cc mL of Isovue 370, pu lmonary embolism protocol. MIP images are created and reviewed. FINDINGS: Pulmonary Artery: There is no evidence for a filling defect within the pulmonary vasculature to sugge st acute pulmonary embolism. The pulmonary artery is of normal size. Lungs/Pleura: No evidence of focal consolidation, pleural effusion or pneumothorax. Airway: Large airways are patent. Heart: Heart is within normal limits for size.. No pericardial effusion. Vasculature: No evidence of aortic aneurysm. Mediastinum: Mildly prominent right paratracheal lymph node (series 4, image 25). Musculoskeletal: No acute osseous abnormalities Soft Tissues: Unremarkable. Lower neck: Thyromegaly.. Upper Abdomen: Post cholecystectomy changes. IMPRESSION: 1. No evidence of pulmonary embolism. 2. Nonspecific mildly prominent right paratracheal lymph node. 3. Thyromegaly.
[2022-11-03] MEDS: HYDROcodone/APAP 5-325MG 1 EACH TAB PO PRN (17:03)
[2022-11-03] MEDS ORDERED: SYMBICORT 80-4.5 MCG INHALER INHALATION SCH (20:00)
[2022-11-03] MEDS ORDERED: ATORVASTATIN 20 MG TAB PO SCH (21:00)
[2022-11-03] MEDS ORDERED: LEVOTHYROXINE 100 MCG TAB PO SCH (21:00)
[2022-11-03] MEDS: METOPROLOL TARTRATE 12.5 MG TAB PO SCH (22:32)
[2022-11-03 23:01] VITALS: RESP 16
[2022-11-03 23:20] LABS: Chol/HDL Ratio 5.15 Ratio; LDL Cholesterol,Calculated 115.3 mg/dL (0.0-131.0)
--- NOTE | 2022-11-03 23:52 | HP ---
HISTORY AND PHYSICAL HISTORY OF PRESENT ILLNESS: A 62-year-old white female, came in with chest pain. It appears to be reproducible on exam when she pushes on her chest to rule out myocardial infarction. So far, CPKs are negative x3. She had a stress test. No heart catheterization. She has tenderness to palpation in her back around her thoracic spine. She has tenderness to palpation over the anterior chest wall. As mentioned, she has low heart rate, but she is on beta blockers at home. It has been low 50s, high 40s. She has heaviness in her chest, most likely related to her breathing or costochondritis or thoracic neuropathy. She also has sharp stabbing pain. She has a history of atrial fibrillation with RVR. HOME MEDICATIONS: Reviewed include, 1. Synthroid 100 mcg daily. 2. Lopressor 25 b.i.d. 3. Vitamin D. 4. Gabapentin 600 b.i.d. REVIEW OF SYSTEMS: A 14-point review of systems otherwise negative. EKG, sinus rhythm. PAST MEDICAL HISTORY: Atrial fibrillation, asthma, hypothyroidism. PAST SURGICAL HISTORY: Cholecystectomy, orthopedic surgery, knee replacement. PHYSICAL EXAMINATION: VITAL SIGNS: Temperature 97.9, pulse is 52 to 54, respiratory rate 16 to 18, blood pressure is 140s to 150s over 70s to 80s, O2 of 98% on room air. CARDIOVASCULAR: S1, S2. LUNGS: Scattered rhonchi and wheeze. HEMATOLOGY: Negative Homans. PSYCH: Fair mood and affect. MUSCULOSKELETAL: She has tenderness to palpation over anterior chest wall suspicious for costochondritis. She has tenderness to palpation over parathoracic spine. ASSESSMENT: Atypical chest pain, myocardial infarction ruled out. Suspect costochondritis, thoracic radiculopathy, history of chronic obstructive pulmonary disease, diabetes mellitus. Prognosis guarded. Wait for cardiology recommendations. I suspect we need to cut her beta ana down as she has a history of atrial fibrillation, but due to bradycardia, maybe cut it down to 12.5 b.i.d. Wait for cardiac recommendations otherwise. Prognosis guarded. MMODL / IJN: [id number] /
--- NOTE | 2022-11-04 01:39 | CT ---
EXAM: CT Cervical Spine Without Intravenous Contrast CLINICAL HISTORY: ITS.REASON CT Reason: neuritis/ddd TECHNIQUE: Axial computed tomography images of the cervical spine without intravenous contrast. CTDI is 11.3 mGy and DLP is 557 mGy-cm. This CT exam was performed using one or more of the following dose reduction techniques: automated exposure control, adjustment of the mA and/or kV according to patient size, and/or use of iterative reconstruction technique. COMPARISON: No relevant prior studies available. FINDINGS: The vertebral body heights are maintained. The craniocervical junction is intact. The atlanto-dens interval is maintained. The dens is intact. There is no spondylolisthesis. Multilevel cervical spondylosis and degenerative disc disease. Straightening of the cervical lordosis. Enlarged RIGHT side of the thyroid gland. IMPRESSION: No acute fracture or subluxation of the cervical spine. EXAM: CT Thoracic Spine Without Intravenous Contrast CLINICAL HISTORY: ITS.REASON CT Reason: neuritis/ddd TECHNIQUE: Axial computed tomography images of the thoracic spine without intravenous contrast. CTDI is 11.3 mGy and DLP is 557 mGy-cm. This CT exam was performed using one or more of the following dose reduction techniques: automated exposure control, adjustment of the mA and/or kV according to patient size, and/or use of iterative reconstruction technique. COMPARISON: No relevant prior studies available. FINDINGS: The vertebral body heights are maintained. The thoracic kyphosis is preserved. There is no spondylolisthesis. The posterior elements are maintained, without evidence of acute fracture. The pedicles are intact. Multilevel thoracic spondylosis and degenerative disc disease. IMPRESSION: No acute fracture or subluxation of the thoracic spine.
[2022-11-04] MEDS: SODIUM CHLORIDE 0.9% 1,000 ML IV SCH (06:18)
[2022-11-04] MEDS ORDERED: LEVOTHYROXINE 112 MCG TAB PO SCH (06:30)
[2022-11-04] MEDS ORDERED: BUDESONIDE 0.5 MG/2 ML NEBU INHALATION SCH (08:00)
[2022-11-04] MEDS: LOSARTAN-HCTZ 50-12.5 MG 1 EACH TAB PO SCH (08:34)
[2022-11-04] MEDS: HYDROcodone/APAP 5-325MG 1 EACH TAB PO PRN (08:34)
[2022-11-04] MEDS: IPRATROPIUM-ALBUTEROL 3 ML NEB INHALATION SCH ×2 (09:06→12:02)
[2022-11-04] MEDS: METOPROLOL TARTRATE 12.5 MG TAB PO SCH (10:08)
[2022-11-04 10:15] VITALS: BP 166/92; PULSE 52; TEMP 98.3
== END 2022-11-04 12:50 | disposition home or self-care (01) ==
LOC: EC 23:24 → 6NMEDSUR 11-03 01:35
PROVIDERS: ADMIT Family Medicine; ATTEND Family Medicine
DX: R07.89 Other chest pain (principal); R60.0 Localized edema; Z86.73 Personal history of transient ischemic attack (TIA), and cerebral infarction without residual deficits; R00.2 Palpitations; R00.1 Bradycardia, unspecified; M54.14 Radiculopathy, thoracic region; I48.91 Unspecified atrial fibrillation; E03.9 Hypothyroidism, unspecified; J45.909 Unspecified asthma, uncomplicated; Z86.14 Personal history of Methicillin resistant Staphylococcus aureus infection; Z96.652 Presence of left artificial knee joint; Z90.49 Acquired absence of other specified parts of digestive tract; Z98.890 Other specified postprocedural states; Z83.3 Family history of diabetes mellitus; Z82.5 Family history of asthma and other chronic lower respiratory diseases; Z82.49 Family history of ischemic heart disease and other diseases of the circulatory system; Z79.890 Hormone replacement therapy; Z79.899 Other long term (current) drug therapy; Z88.2 Allergy status to sulfonamides
CPT/HCPCS: 96361; 96376; 96374; 36415; 94640 ×2; 94760; 93005; 85379; 84439; 83880; 80061; 80053; 84443; 83690; 83735; 84484; 85025; 85610; 85730; 71045; 72128; 72125; 71275; G0378 ×2; J2270; Q9967; 99291

== ENCOUNTER 2023-05-27 18:26 | Observation (INO) | payer OTHER ==
--- NOTE | 2023-05-27 18:37 | ED ---
General Adult HPI - General Source: patient, RN notes reviewed Mode of arrival: wheelchair Limitations: no limitations <Bev Brown - Last Filed: 05/27/23 18:36> - General Source: RN notes reviewed, old records reviewed Limitations: no limitations - History of Present Illness -: days(s) Location: buttocks Radiation: non-radiation Severity scale (1-10): 3 Quality: stabbing Consistency: constant Improves with: none Worsens with: none Associated Symptoms: denies other symptoms Treatments Prior to Arrival: none <Vipin Amezquita - Last Filed: 05/28/23 01:03> - General Stated complaint: L Leg Numbness Time Seen by Provider: 05/27/23 18:36 - History of Present Illness Initial comments: Patient is a 63-year-old female presented to ER with chief complaint of left leg numbness. Patient seen by PCP and was told it may be a back problem. This has been going on for a while and has been exacerbated past 2 weeks. She reports she has not been able to get around the house without a cane. Denies any bowel or bladder incontinence, saddle paresthesias, fevers, history of IV drug use. (Bev Brown) This is a 63-year-old female to the ER for evaluation with left lower extremity pain numbness, patient was told that she may be having a significant back problem but is persisting. Patient has increasing weakness difficulty getting around but denying any bladder or bowel issues. (Vipin Amezquita) - Related Data Home Medications Medication Instructions Recorded Confirmed HYDROcodone/APAP 5-325MG [[place] 1 tab PO Q12H PRN 11/03/22 05/27/23 5-325] Ascorbic Acid [Vitamin C] 1,000 mg PO DAILY 05/27/23 05/27/23 Calcium Carbonate [Calcium] 600 mg PO DAILY 05/27/23 05/27/23 Cyanocobalamin (Vitamin B-12) 1,000 mcg PO DAILY 05/27/23 05/27/23 [Vitamin B-12] Gabapentin 800 mg PO TID 05/27/23 05/27/23 Ibuprofen [Motrin] 800 mg PO Q8H 05/27/23 05/27/23 Ipratropium-Albuterol Nebulize 3 ml INHALATION RT-BID 05/27/23 05/27/23 [Duoneb 0.5 mg-3 mg/3 ml Soln] Levothyroxine Sodium [Synthroid] 100 mcg PO DAILY 05/27/23 05/27/23 Triamterene/Hydrochlorothiazid 2 tab PO DAILY 05/27/23 05/27/23 [Triamterene-Hctz 37.5-25 mg Tb] amLODIPine [Norvasc] 5 mg PO DAILY PRN 05/27/23 05/27/23 Allergies Allergy/AdvReac Type Severity Reaction Status Date / Time sulfamethoxazole Allergy Rash/Hives Verified 05/27/23 22:10 [From Bactrim] trimethoprim [From Bactrim] Allergy Rash/Hives Verified 05/27/23 22:10 Review of Systems ROS Other: All systems not noted in ROS Statement are negative. <Bev Brown - Last Filed: 05/27/23 18:36> ROS Other: All systems not noted in ROS Statement are negative. <Vipin Amezquita - Last Filed: 05/28/23 01:03> ROS Statement: Those systems with pertinent positive or pertinent negative responses have been documented in the HPI. Past Medical History Past Medical History: Atrial Fibrillation, Asthma, Thyroid Disorder Additional Past Medical History / Comment(s): a-fib after knee replacment (proximal) History of Any Multi-Drug Resistant Organisms: MRSA Date of last positivie culture/infection: 2014 MDRO Source:: abdomen Past Surgical History: Cholecystectomy, Orthopedic Surgery Additional Past Surgical History / Comment(s): left knee replacment,eye surgery,carmine knee arthroscopies,D&Cx2 Past Anesthesia/Blood Transfusion Reactions: No Reported Reaction Additional Past Anesthesia/Blood Transfusion Reaction / Comment(s): a-fib after knee replacment (proximal). no hx blood transfusions Past Psychological History: No Psychological Hx Reported Smoking Status: Never smoker Past Alcohol Use History: None Reported Past Drug Use History: None Reported - Past Family History Father Family Medical History: COPD, Diabetes Mellitus Additional Family Medical History / Comment(s): enalrged heart <Bev Brown - Last Filed: 05/27/23 18:36> General Exam <Bev Brown - Last Filed: 05/27/23 18:36> General appearance: alert, in no apparent distress, anxious, in distress Head exam: Present: atraumatic, normocephalic, normal inspection Eye exam: Present: normal appearance, PERRL, EOMI. Absent: scleral icterus, conjunctival injection, periorbital swelling ENT exam: Present: normal exam, mucous membranes moist Neck exam: Present: normal inspection. Absent: tenderness, meningismus, lymphadenopathy Respiratory exam: Present: normal lung sounds bilaterally. Absent: respiratory distress, wheezes, rales, rhonchi, stridor Cardiovascular Exam: Present: regular rate, normal rhythm, normal heart sounds. Absent: systolic murmur, diastolic murmur, rubs, gallop, clicks GI/Abdominal exam: Present: soft, normal bowel sounds. Absent: distended, tenderness, guarding, rebound, rigid Extremities exam: Present: normal inspection, full ROM, normal capillary refill. Absent: tenderness, pedal edema, joint swelling, calf tenderness Back exam: Present: normal inspection Neurological exam: Present: alert, oriented X3, CN II-XII intact Psychiatric exam: Present: normal affect, normal mood Skin exam: Present: warm, dry, intact, normal color. Absent: rash <Vipin Amezquita - Last Filed: 05/28/23 01:03> - General Exam Comments Initial Comments: Visual Physical Exam Vital signs reviewed General: Well-appearing, nontoxic, no acute distress. Head: Normocephalic, atraumatic Eyes: PERRLA, EOMI ENT: Airway patent Chest: Nonlabored breathing Skin: No visual rash, normal skin tone Neuro: Alert and oriented 3 Musculoskeletal: No gross abnormalities (Bev Brown) Course <Vipin Amezquita - Last Filed: 05/28/23 01:03> Vital Signs 05/27/23 18:34 Temperature 98.3 F Pulse Rate 71 Respiratory 20 Rate Blood Pressure 147/84 O2 Sat by Pulse 99 Oximetry - Reevaluation(s) Reevaluation #1: 05/28/23 00:59 Medical records reviewed (Vipin Amezquita) Reevaluation #2: 05/28/23 00:59 Patient symptoms unchanged (Vipin Amezquita) Reevaluation #3: 05/28/23 00:59 Patient informed of results and questions answered (Vipin Amezquita) Reevaluation #4: Was pt. sent in by a medical professional or institution (KAYLA Lundy, CORPORATE EVENTS DIRECTOR, urgent care, hospital, or halfway...) When possible be specific @ -no Did you speak to anyone other than the patient for history (EMS, parent, family, police, friend...)? What history was obtained from this source @ -no Did you review nursing and triage notes (agree or disagree)? Why? @ -agree Are old charts reviewed (outside hosp., previous admission, EMS record, old EKG, old radiological studies, urgent care reports/EKG's, halfway records)? Report findings @ -yes Differential Diagnosis (chest pain, altered mental status, abdominal pain women, abdominal pain men, vaginal bleeding, weakness, fever, dyspnea, syncope, headache, dizziness, GI bleed, back pain, seizure, CVA, palpatations, mental health, musculoskeletal)? @ -prior EKG interpreted by me (3pts min.). @ -yes X-rays interpreted by me (1pt min.). @ -yes negative for acute disease CT interpreted by me (1pt min.). @ -no U/S interpreted by me (1pt. min.). @ -no What testing was considered but not performed or refused? (CT, X-rays, U/S, labs)? Why? @ -none What meds were considered but not given or refused? Why? @ -none Did you discuss the management of the patient with other professionals (jp etienne i.e. KAYLA Lundy, CORPORATE EVENTS DIRECTOR, lab, RT, psych nurse, social services coordinator, fleet sales associate, teacher, professional security officer, corrections caseworker)? Give summary @ -no Was smoking cessation discussed for >3mins.? @ -no Was critical care preformed (if so, how long)? @ -no Were there social determinants of health that impacted care today? How? (Homelessness, low income, unemployed, alcoholism, drug addiction, transportation, low edu. Level, literacy, decrease access to med. care, prison, rehab)? @ -none Was there de-escalation of care discussed even if they declined (Discuss DNR or withdrawal of care, Hospice)? DNR status @ -no What co-morbidities impacted this encounter? (DM, HTN, Smoking, COPD, CAD, Cancer, CVA, ARF, Chemo, Hep., AIDS, mental health diagnosis, sleep apnea, morbid obesity)? @ -none Was patient admitted / discharged? Hospital course, mention meds given and route, prescriptions, significant lab abnormalities, going to OR and other pertinent info. @ - Undiagnosed new problem with uncertain prognosis? @ -no Drug Therapy requiring intensive monitoring for toxicity (Heparin, Nitro, Insulin, Cardizem)? @ -no Were any procedures done? @ -no Diagnosis/symptom? @ - Acute, or Chronic, or Acute on Chronic? @ -Acute Uncomplicated (without systemic symptoms) or Complicated (systemic symptoms)? @ -Complicated Side effects of treatment? @ -no Exacerbation, Progression, or Severe Exacerbation? @ -exacerbation Poses a threat to life or bodily function? How? (Chest pain, [place], [place], pneumonia, PE, COPD, DKA, ARF, appy, cholecystitis, CVA, Diverticulitis, Homicidal, Suicidal, threat to staff... and all critical care pts) @ -yes (Vipin Amezquita) Reevaluation #5: Differential Weakness: Hypoglycemia, shock, sepsis, hyponatremia, anemia, infection, [place], ETOH, adverse medicine reaction, overdose, stroke, this is not meant to be an all-inclusive list. (Vipin Amezquita) - Consultations Consultation #1: Spoke with Dr. Han who will admit this patient (Vipin Amezquita) Medical Decision Making <Bev Brown - Last Filed: 05/27/23 18:36> - Lab Data Result diagrams: 05/27/23 22:57 05/27/23 22:57 - EKG Data -: EKG Interpreted by Me (EKG is 53 OH 93 QRS 23 QTc 412) - Radiology Data Radiology results: report reviewed (Chest x-ray and CT L-spine is negative for acute disease), image reviewed <Vipin Amezquita - Last Filed: 05/28/23 01:03> - Medical Decision Making I performed the quick note portion of this chart. Electronically signed by Bev Brown PA-C (Bev Brown) 63 female to ER for lower extremity pain leg edema sent in by primary care, patient is also complaining of left lower extremity numbness and pain which has been going on for few weeks and worsening. (Vipin Amezquita) - Lab Data Lab Results 05/27/23 05/27/23 05/27/23 Range/Units 22:57 22:57 22:57 WBC 10.9 H (3.8-10.6) k/uL RBC 4.59 (3.80-5.40) m/uL Hgb 13.6 (11.4-16.0) gm/dL Hct 41.4 (34.0-46.0) % MCV 90.4 (80.0-100.0) fL MCH 29.7 (25.0-35.0) pg MCHC 32.9 (31.0-37.0) g/dL RDW 12.9 (11.5-15.5) % Plt Count 393 (150-450) k/uL MPV 7.5 Neutrophils % 69 % Lymphocytes % 21 % Monocytes % 6 % Eosinophils % 3 % Basophils % 1 % Neutrophils # 7.5 (1.3-7.7) k/uL Lymphocytes # 2.2 (1.0-4.8) k/uL Monocytes # 0.7 (0-1.0) k/uL Eosinophils # 0.3 (0-0.7) k/uL Basophils # 0.1 (0-0.2) k/uL Sodium 139 (137-145) mmol/L Potassium 3.7 (3.5-5.1) mmol/L Chloride 104 (98-107) mmol/L Carbon Dioxide 25 (22-30) mmol/L Anion Gap 10 mmol/L BUN 28 H (7-17) mg/dL Creatinine 0.99 (0.52-1.04) mg/dL Est GFR (CKD-EPI)AfAm 71 (>60 ml/min/1.73 sqM) Est GFR (CKD-EPI)NonAf 62 (>60 ml/min/1.73 sqM) Glucose 96 (74-99) mg/dL Plasma Lactic Acid [place] 1.0 (0.7-2.0) mmol/L Calcium 9.9 (8.4-10.2) mg/dL Phosphorus 3.6 (2.5-4.5) mg/dL Magnesium 2.4 H (1.6-2.3) mg/dL Total Bilirubin 0.4 (0.2-1.3) mg/dL AST 53 H (14-36) U/L ALT 62 H (4-34) U/L Alkaline Phosphatase 149 H (38-126) U/L Troponin I (0.000-0.034) ng/mL NT-Pro-B Natriuret Pep 136 pg/mL Total Protein 7.8 (6.3-8.2) g/dL Albumin 4.6 (3.5-5.0) g/dL TSH 3.250 (0.465-4.680) mIU/L 05/27/23 Range/Units 22:57 WBC (3.8-10.6) k/uL RBC (3.80-5.40) m/uL Hgb (11.4-16.0) gm/dL Hct (34.0-46.0) % MCV (80.0-100.0) fL MCH (25.0-35.0) pg MCHC (31.0-37.0) g/dL RDW (11.5-15.5) % Plt Count (150-450) k/uL MPV Neutrophils % % Lymphocytes % % Monocytes % % Eosinophils % % Basophils % % Neutrophils # (1.3-7.7) k/uL Lymphocytes # (1.0-4.8) k/uL Monocytes # (0-1.0) k/uL Eosinophils # (0-0.7) k/uL Basophils # (0-0.2) k/uL Sodium (137-145) mmol/L Potassium (3.5-5.1) mmol/L Chloride (98-107) mmol/L Carbon Dioxide (22-30) mmol/L Anion Gap mmol/L BUN (7-17) mg/dL Creatinine (0.52-1.04) mg/dL Est GFR (CKD-EPI)AfAm (>60 ml/min/1.73 sqM) Est GFR (CKD-EPI)NonAf (>60 ml/min/1.73 sqM) Glucose (74-99) mg/dL Plasma Lactic Acid [place] (0.7-2.0) mmol/L Calcium (8.4-10.2) mg/dL Phosphorus (2.5-4.5) mg/dL Magnesium (1.6-2.3) mg/dL Total Bilirubin (0.2-1.3) mg/dL AST (14-36) U/L ALT (4-34) U/L Alkaline Phosphatase (38-126) U/L Troponin I <0.012 (0.000-0.034) ng/mL NT-Pro-B Natriuret Pep pg/mL Total Protein (6.3-8.2) g/dL Albumin (3.5-5.0) g/dL TSH (0.465-4.680) mIU/L Disposition <Bev Brown - Last Filed: 05/27/23 18:36> Is patient prescribed a controlled substance at d/c from ED?: No Time of Disposition: 01:00 <Vipin Amezquita - Last Filed: 05/28/23 01:03> Clinical Impression: Palpitations, Bradycardia, Leg pain Disposition: ADMITTED IP TO THIS HOSP Condition: Fair Referrals: Lawrence Han MD [Primary Care Provider] - 1-2 days
--- NOTE | 2023-05-27 19:19 | CT ---
EXAMINATION TYPE: CT lumbar spine wo con DATE OF EXAM: 05/27/2023 COMPARISON: 04/05/2021 HISTORY: 63-year-old female Left leg pain and numbness TECHNIQUE: Contiguous axial scanning of the lumbar spine without IV contrast. Coronal and sagittal re constructions performed. CT DLP: 1109.6 mGycm Automated exposure control for dose reduction was used. FINDINGS: Moderate multilevel spondylotic change. There is hypertrophic facet arthropathy throughout with a deg enerative grade 1 anterolisthesis L4-L5. Trace grade 1 retrolisthesis L1-L2 and L2-L3. Limbus vertebra of L4. Vertebral body heights are preserved. Slight degenerated dextroconvex curvature centered along the upper lumbar spine. Disc bulge, anterolisthesis, facet arthropathy, ligamentum flavum thickening at L4-L5 likely contribu cherelle to moderate focal spinal canal stenosis. Mild spinal canal stenoses at L1-L2, L2-L3, and L3-L4. On the right, there is moderate neural foraminal stenosis at L4-L5 and mild at additional levels. On the left, there is moderate neural foraminal stenosis at L1-L2 and L2/L3. Mild at L3-L4 and L4-L5. Status post cholecystectomy. IMPRESSION: 1. MODERATE MULTILEVEL SPONDYLOTIC CHANGE, MORE ADVANCED AT L1-L2 AND L2-L3 WHERE THERE ARE TRACE GRA DE 1 RETROLISTHESES. 2. DEGENERATIVE GRADE 1 ANTEROLISTHESIS L4-L5. ALONG WITH DISC BULGE AND LIGAMENTUM FLAVUM THICKENING , THERE MAY BE A MODERATE SPINAL CANAL STENOSIS AT THIS LEVEL. 3. ADDITIONAL MILD SPINAL CANAL STENOSES AT L1-L2, L2-L3, AND L3-L4. 4. ON THE RIGHT, THERE IS MODERATE NEUROFORAMINAL STENOSIS AT L4-L5. 5. ON THE LEFT, MODERATE NEUROFORAMINAL STENOSIS AT L1-L2 AND L2-L3.
--- NOTE | 2023-05-27 22:45 | XR ---
EXAMINATION TYPE: XR chest 2V DATE OF EXAM: 05/27/2023 COMPARISON: CT chest November 03, 2022 HISTORY: Weakness TECHNIQUE: Frontal and lateral views of the chest are obtained. FINDINGS: There is no focal air space opacity, pleural effusion, or pneumothorax seen. The cardiac silhouette size is upper limits of normal. The osseous structures are intact. Cholecystectomy clips are redemonstrated. IMPRESSION: No acute process.
[2023-05-27 23:07] LABS: Basophils # (A) 0.1 k/uL (0-0.2); Basophils % (A) 1 %; Eosinophils # (A) 0.3 k/uL (0-0.7); Eosinophils % (A) 3 %; HCT 41.4 % (34.0-46.0); HGB 13.6 gm/dL (11.4-16.0); Lymphocytes # (A) 2.2 k/uL (1.0-4.8); Lymphocytes % (A) 21 %; MCH 29.7 pg (25.0-35.0); MCHC 32.9 g/dL (31.0-37.0); MCV 90.4 fL (80.0-100.0); Mean Platelet Volume 7.5; Monocytes # (A) 0.7 k/uL (0-1.0); Monocytes % (A) 6 %; Neutrophils # (A) 7.5 k/uL (1.3-7.7); Neutrophils % (A) 69 %; Platelet Count 393 k/uL (150-450); RBC 4.59 m/uL (3.80-5.40); RDW 12.9 % (11.5-15.5); WBC 10.9 k/uL (3.8-10.6)
[2023-05-27 23:21] LABS: ALT 62 U/L (4-34); AST 53 U/L (14-36); African American GFR (CKD) 71 (>60 ml/min/1.73 sqM); Albumin 4.6 g/dL (3.5-5.0); Alkaline Phosphatase 149 U/L (38-126); Anion Gap 10 mmol/L; Blood Urea Nitrogen 28 mg/dL (7-17); Calcium 9.9 mg/dL (8.4-10.2); Carbon Dioxide 25 mmol/L (22-30); Chloride 104 mmol/L (98-107); Glucose 96 mg/dL (74-99); Magnesium 2.4 mg/dL (1.6-2.3); Non-African American GFR(CKD) 62 (>60 ml/min/1.73 sqM); Phosphorus 3.6 mg/dL (2.5-4.5); Potassium 3.7 mmol/L (3.5-5.1); Sodium 139 mmol/L (137-145); Total Bilirubin 0.4 mg/dL (0.2-1.3); Total Protein 7.8 g/dL (6.3-8.2)
[2023-05-27 23:28] LABS: NT-Pro-B-Type Natriuretic Pept 136 pg/mL
[2023-05-27] MEDS: HYDROmorphone 1 MG/ML 1 ML SYRINGE IVP STA (23:57)
[2023-05-28] MEDS ORDERED: NALOXONE 0.4 MG/ML 1 ML VIAL IV PRN (00:47)
[2023-05-28] MEDS ORDERED: ONDANSETRON 4 MG/2 ML VIAL IVP PRN (00:47)
[2023-05-28] MEDS: SODIUM CHLORIDE 0.9% 1,000 ML IV SCH (03:30)
[2023-05-28] MEDS: HYDROmorphone 1 MG/ML 1 ML SYRINGE IVP PRN (05:38)
[2023-05-28 06:22] LABS: INR 0.9 (<1.2); Prothrombin Time 10.1 sec (10.0-12.5)
[2023-05-28 06:23] LABS: Partial Thromboplastin Time 25.4 sec (22.0-30.0)
[2023-05-28 09:34] LABS: Appearance,Urine Clear (Clear); Bacteria,Urine Many /hpf; Bilirubin,Urine Negative (Negative); Blood,Urine Negative (Negative); Color,Urine Yellow; Glucose,Urine (UA) Negative (Negative); Hyaline Casts,Urine 1 /lpf (0-2); Ketones,Urine Negative (Negative); Leukocyte Esterase,Urine Small (Negative); Mucus,Urine Occasional /hpf; Nitrite,Urine Negative (Negative); Protein,Urine Negative (Negative); RBC,Urine 1 /hpf (0-5); Specific Gravity,Urine 1.021 (1.001-1.035); Squamous Epithelial Cell,Urine 1 /hpf (0-4); Urobilinogen,Urine <2.0 mg/dL (<2.0); WBC,Urine 11 /hpf (0-5)
[2023-05-28] MEDS ORDERED: HYDROcodone/APAP 5-325MG 1 EACH TAB PO PRN (10:22)
[2023-05-28] MEDS: methylPREDNISolone SOD SUCCI 40 MG/ML 1 ML VIAL IV SCH (12:19)
[2023-05-28] MEDS: GABAPENTIN 400 MG CAP PO SCH (16:40)
[2023-05-28] MEDS ORDERED: ZOLPIDEM 5 MG TAB PO PRN (17:30)
--- NOTE | 2023-05-28 18:50 | XR ---
EXAMINATION TYPE: XR Hip Complete LT DATE OF EXAM: 05/28/2023 6:31 PM CLINICAL INDICATION:Female, 63 years old with history of hip oa; [facility] COMPARISON: 01/30/2022. TECHNIQUE: XR Hip Complete LT; hip was examined in the frontal and lateral projections and a AP pelvi s. FINDINGS: No evidence for acute process, joint dislocation or significant soft tissue swelling. Osteo phyte formation of the superior acetabulum of the hip. IMPRESSION: 1. No evidence for acute process. 2. Moderate hip osteoarthrosis.
[2023-05-28] MEDS: IPRATROPIUM-ALBUTEROL 3 ML NEB INHALATION SCH (20:44)
--- NOTE | 2023-05-28 21:07 | HP ---
HISTORY AND PHYSICAL HISTORY OF PRESENT ILLNESS: This is a 63-year-old white female, complaining of left leg numbness, unable to move her legs. She is supposed to get an epidural catheter, shows severe lumbar disk disease at L5-S1 with acute herniated disc, possibly causing the left leg not to move. Wait for epidural shots tomorrow prior to going home. Get neurosurgery consult, order an MRI. She has had this buildup over the last year or 2, unable to work at this time. She is unable to move her legs. She came in for an epidural shot, unable to move. HOME MEDICINES: Reviewed. PAST MEDICAL HISTORY: Hypertension, hypothyroidism, COPD, asthma, rhinitis, obesity, prediabetes, acute on chronic diastolic heart failure. REVIEW OF SYSTEMS: A 14-point review of systems otherwise reviewed. LABORATORY DATA: Troponins negative. Sodium 136 9, potassium 3.7, magnesium 2.4. LFTs are high at 53, 62, 149. Hemoglobin 13.6. PHYSICAL EXAMINATION: CARDIOVASCULAR: S1, S2. LUNGS: Transmitted upper sounds. ABDOMEN: Soft. PSYCH: Fair mood and affect. NEUROLOGIC: Alert and oriented x3. MUSCULOSKELETAL: Straight leg raise test positive, left leg at 5 degrees. Negative on the right leg. Tense to palpation lumbar spine, left side. ASSESSMENT: Acute lumbar disc herniation, retractable pain, gait immobility, unable to ambulate her left leg, epidural shots, neurosurgical evaluation, IV steroids, IV pain control. Please see further orders as mentioned above. MMODL / IJN: [id number] /
[2023-05-29] MEDS: LEVOTHYROXINE 100 MCG TAB PO SCH (05:44)
[2023-05-29] MEDS: amLODIPine 5 MG TAB PO SCH (08:12)
[2023-05-29] MEDS: ASCORBIC ACID 500 MG TAB PO SCH (08:12)
[2023-05-29] MEDS: TRIAMTERENE-HCTZ 37.5-25MG 1 EACH CAP PO SCH (08:13)
--- NOTE | 2023-05-29 08:18 | CT ---
EXAMINATION TYPE: CT chest wo con DATE OF EXAM: 05/29/2023 COMPARISON: HISTORY: COPD CT DLP: 564 mGycm, Automated exposure control for dose reduction was used. CONTRAST: Performed injected with mL of . TECHNIQUE: Axial images were obtained at 5 mm thick sections. Reconstructed images are reviewed on [employer] computer in the coronal plane. FINDINGS: There is some mild fullness through the partially visualized thyroid. Thyroid could be furt her evaluated with ultrasound. No suspicious lung nodules or focal infiltrates are present. No enlarged mediastinal or hilar adenopathy is evident. The ascending aorta diameter at the level o f the main pulmonary artery is 3.0 cm. The main pulmonary artery diameter at the bifurcation is 2.[address] sections are obtained through the upper abdomen. Abdomen is essentially unremarkable. IMPRESSION: 1. No acute pulmonary process. 2. Some fullness within the thyroid. Ultrasound could be performed as clinically indicated.
[2023-05-29 08:34] LABS: Basophils # (A) 0.02 X 10*3/uL (0.00-0.10); Basophils % (A) 0.1 %; Eosinophils # (A) 0 X 10*3/uL (0.04-0.35); Eosinophils % (A) 0 %; HCT 41.6 % (37.2-46.3); HGB 13.2 g/dL (12.0-15.0); Lymphocytes % (A) 10.3 %; MCH 28.6 pg (27.0-32.0); MCHC 31.7 g/dL (32.0-37.0); Mean Platelet Volume 9.8 FL (9.5-12.2); Monocytes # (A) 0.32 X 10*3/uL (0.20-1.00); Monocytes % (A) 2.4 %; NRBC Per 100 WBC 0 X 10*3/uL (0.00-0.01); Neutrophils # (A) 11.73 X 10*3/uL (1.80-7.70); Neutrophils % (A) 86.8 %; Platelet Count 454 X 10*3/uL (140-440); RBC 4.62 X 10*6/uL (4.10-5.20); RDW 13.2 % (11.5-14.5); WBC 13.53 X 10*3/uL (4.50-10.00)
[2023-05-29 08:54] LABS: ALT 51 U/L (8-44); AST 30 U/L (13-35); Albumin 4.6 g/dL (3.8-4.9); Albumin/Globulin Ratio 1.59 Ratio (1.60-3.17); Alkaline Phosphatase 124 U/L (41-126); BUN/Creat Ratio 29.29 Ratio (12.00-20.00); Blood Urea Nitrogen 20.5 mg/dL (9.0-27.0); Calcium 9.9 mg/dL (8.7-10.3); Carbon Dioxide 22.2 mmol/L (21.6-31.8); Chloride 103 mmol/L (96-109); Globulin 2.9 g/dL (1.6-3.3); Glucose 159 mg/dL (70-110); Magnesium 2.2 mg/dL (1.5-2.4); Phosphorus 3.3 mg/dL (2.4-5.1); Potassium 4.2 mmol/L (3.5-5.5); Sodium 138 mmol/L (135-145); Total Bilirubin 0.3 mg/dL (0.3-1.2); Total Protein 7.5 g/dL (6.2-8.2)
--- NOTE | 2023-05-29 10:03 | P.PAINCN ---
History of Present Illness - Reason for Consult Consult date: 05/29/23 - History of Present Illness This is 63 years old female, with a chronic history of low back pain, patient reported that intensity of the pain increased over the last 2 weeks, currently the pain is constant localized in the low back area with radiation to the left lower extremity associated with numbness and tingling sensation, she feels weakness in her left lower extremity, she is not able to ambulate on her left lower extremity, denies any fever or night sweats , currently on multiple medication to manage her pain which failed to control her symptoms Past Medical History Past Medical History: Atrial Fibrillation, Asthma, Thyroid Disorder Additional Past Medical History / Comment(s): a-fib after knee replacment (proximal) History of Any Multi-Drug Resistant Organisms: MRSA Year Discovered:: 2014 MDRO Source:: abdomen Past Surgical History: Cholecystectomy, Orthopedic Surgery Additional Past Surgical History / Comment(s): left knee replacment,eye surgery,carmine knee arthroscopies,D&Cx2 Past Anesthesia/Blood Transfusion Reactions: No Reported Reaction Additional Past Anesthesia/Blood Transfusion Reaction / Comm: a-fib after knee replacment (proximal). no hx blood transfusions Past Psychological History: No Psychological Hx Reported Smoking Status: Never smoker Past Alcohol Use History: None Reported Past Drug Use History: None Reported - Past Family History Father Family Medical History: COPD, Diabetes Mellitus Additional Family Medical History / Comment(s): enalrged heart Medications and Allergies Home Medications Medication Instructions Recorded Confirmed Type HYDROcodone/APAP 5-325MG [[place] 1 tab PO Q12H PRN 11/03/22 05/27/23 History 5-325] Ascorbic Acid [Vitamin C] 1,000 mg PO DAILY 05/27/23 05/27/23 History Calcium Carbonate [Calcium] 600 mg PO DAILY 05/27/23 05/27/23 History Cyanocobalamin (Vitamin B-12) 1,000 mcg PO DAILY 05/27/23 05/27/23 History [Vitamin B-12] Gabapentin 800 mg PO TID 05/27/23 05/27/23 History Ibuprofen [Motrin] 800 mg PO Q8H 05/27/23 05/27/23 History Ipratropium-Albuterol Nebulize 3 ml INHALATION RT-BID 05/27/23 05/27/23 History [Duoneb 0.5 mg-3 mg/3 ml Soln] Levothyroxine Sodium [Synthroid] 100 mcg PO DAILY 05/27/23 05/27/23 History Triamterene/Hydrochlorothiazid 2 tab PO DAILY 05/27/23 05/27/23 History [Triamterene-Hctz 37.5-25 mg Tb] amLODIPine [Norvasc] 5 mg PO DAILY PRN 05/27/23 05/27/23 History Allergies Allergy/AdvReac Type Severity Reaction Status Date / Time sulfamethoxazole Allergy Rash/Hives Verified 05/27/23 22:10 [From Bactrim] trimethoprim [From Bactrim] Allergy Rash/Hives Verified 05/27/23 22:10 Physical Exam Vitals: Vital Signs Temp Pulse Pulse Resp BP Pulse Ox 05/29/23 08:42 78 05/29/23 08:27 76 05/29/23 02:08 97.6 F 69 140/68 96 05/28/23 19:31 98.1 F 59 L 16 128/74 94 L 05/28/23 16:37 97.1 F L 60 16 144/73 96 05/28/23 15:09 16 Intake and Output 05/28/23 05/29/23 05/29/23 22:59 06:59 14:59 Output Total 350 Balance -350 Output: Urine 350 Other: Voiding Method Bedside Commode # Voids 1 # Bowel Movements 0 1 Weight 69.853 kg Physical Examinations : -Constitutiona : Cooperative , not in acute distress . -HEENT : nech : supple , no Lymphadenopathy , normal thyroid size . : eyes : no ptosis , no icterus, no gabriel tophobia . : ENT : normal of hearing , normal oropharynx , no Thrush . - Respiratory : Chest clear to auscultations Bilaterally , no wheezing , no Rhonchi . - Cardiovascula : regular rate and rhythem , S1 , S2 , no S3 , no S4. - Gastrointestina : abdomen soft no tenderness , bowel sounds , no organomegally . - Genitourinary : Defferred . - neurologic : Cranial nerve II to XII intact , no focal neurological deffecit . -psychatric : alert , oriented X 3 , appropriate affect , intact judgment and insight . -Lymphatic : no Lymphadenopathy . - musculoskeltal : Lumber spine moter stegnth lower extremities ,thigh and legs 5/5 Right side , 3/5 Left side deep tendon reflexes : normal Knee Jerk , normal ankle Jerk lumber facet Loading Test =positive Right , positive Left Range of motion of the lumbar spine Flexion 30 degrees, extension 10 degrees strait leg raising test = positive at 30 degree on the left side, negative on the right side Fabere test= positive Right , and positive LT . Sever tenderness over the Sacroiliac joint on the Left sides Results CBC & Chem 7: 05/29/23 05:46 05/29/23 05:46 Labs: Abnormal Lab Results - Last 24 Hours (Table) 05/29/23 05/29/23 Range/Units 05:46 05:46 WBC 13.53 H (4.50-10.00) X 10*3/uL MCHC 31.7 L (32.0-37.0) g/dL Plt Count 454 H (140-440) X 10*3/uL Immature Gran # 0.06 H (0.00-0.04) X 10*3/uL Neutrophils # 11.73 H (1.80-7.70) X 10*3/uL Eosinophils # 0 L (0.04-0.35) X 10*3/uL Anion Gap 12.80 H (4.00-12.00) mmol/L BUN/Creatinine Ratio 29.29 H (12.00-20.00) Ratio Glucose 159 H (70-110) mg/dL ALT 51 H (8-44) U/L Albumin/Globulin Ratio 1.59 L (1.60-3.17) Ratio Comments: CT scan of the lumbar spine= altered level lumbar degenerative disc disease and lumbar foraminal stenosis and lumbar spinal stenosis at L4-5, lumbar facet arthropathy Assessment and Plan Plan: Assessment and plan= 1-lumbar radiculopathy. 2- lumbar degenerative disc disease , 3-lumbar spondylosis with lumbar facet arthropathy . 4-Lumbar spinal stenosis She could benefit from lumbar epidural steroid injection at L4-5 levels left paramedian approach Time with Patient: Less than 30 PQRS Measure Charge Sheet - Pain Location Back Non-Pharmacological Interventions: Reduce Environmental Stimuli Pharmacological Interventions: Discuss Pain Med Options, PRN Medication PQRS Narrative: Smoking Status Never smoker Blood Pressure [Left Arm 140/68 Supine] Blood Pressure 123/70 Pain Intensity [Back] 0 Pain Intensity 6 Pain Scale Used Numeric (1 - 10) Scale Used Numeric (1 - 10) Home Medications: Ambulatory Orders HYDROcodone/APAP 5-325MG [[place] 5-325] 1 tab PO Q12H PRN 11/03/22 Ascorbic Acid [Vitamin C] 1,000 mg PO DAILY 05/27/23 Calcium Carbonate [Calcium] 600 mg PO DAILY 05/27/23 Cyanocobalamin (Vitamin B-12) [Vitamin B-12] 1,000 mcg PO DAILY 05/27/23 Gabapentin 800 mg PO TID 05/27/23 Ibuprofen [Motrin] 800 mg PO Q8H 05/27/23 Ipratropium-Albuterol Nebulize [Duoneb 0.5 mg-3 mg/3 ml Soln] 3 ml INHALATION RT-BID 05/27/23 Levothyroxine Sodium [Synthroid] 100 mcg PO DAILY 05/27/23 Triamterene/Hydrochlorothiazid [Triamterene-Hctz 37.5-25 mg Tb] 2 tab PO DAILY 05/27/23 amLODIPine [Norvasc] 5 mg PO DAILY PRN 05/27/23
--- NOTE | 2023-05-29 11:42 | CA ---
Transthoracic Echo Report Name: Ayanna Helton Age: 63 Gender: F : 1960 Exam Date: 05/29/2023 08:40 Exam Location: [facility] Ht (in): 50 Wt (lb): 154 Ordering Physician: Lawrence Han MD Attending/Referring Phys: [employer] Supervisor Osman Olivarez RDCS Procedure CPT: Indications: diastolic chf Cardiac Hx: Technical Quality: Contrast 1: Total Dose (mL): Contrast 2: Total Dose (mL): MEASUREMENTS (Male / Female) Normal Values 2D ECHO LV Diastolic Diameter PLAX 4.8 cm 4.2 - 5.9 / 3.9 - 5.3 cm LV Systolic Diameter PLAX 3.5 cm IVS Diastolic Thickness 1.0 cm 0.6 - 1.0 / 0.6 - 0.9 cm LVPW Diastolic Thickness 0.7 cm 0.6 - 1.0 / 0.6 - 0.9 cm LV Relative Wall Thickness 0.4 LVOT Diameter 2.1 cm Aortic Root Diameter 3.0 cm LA Systolic Diameter LX 3.7 cm 3.0 - 4.0 / 2.7 - 3.8 cm DOPPLER AV Peak Velocity 156.9 cm/s AV Peak Gradient 9.8 mmHg AV Mean Velocity 106.5 cm/s AV Mean Gradient 5.1 mmHg AV Velocity Time Integral 30.5 cm MV Area PHT 3.1 cm??? Mitral E Point Velocity 77.2 cm/s Mitral A Point Velocity 82.6 cm/s Mitral E to A Ratio 0.9 MV Deceleration Time 246.0 ms TR Peak Velocity 143.3 cm/s TR Peak Gradient 8.2 mmHg PV Peak Velocity 101.2 cm/s PV Peak Gradient 4.1 mmHg FINDINGS Left Ventricle Normal LV cavity size. Mild concentric LVH. Normal left ventricular wall motion. Left ventricular ejection fraction is estimated at 55%. No significant diastolic dysfunction dysfunction Right Ventricle Normal right ventricular size and function. Right Atrium Normal right atrial size. Left Atrium Normal left atrial size. Mitral Valve Trace mitral regurgitation. Aortic Valve Aortic valve not well visualized. No significant stenosis or regurgitation Tricuspid Valve Trace tricuspid regurgitation. Pulmonic Valve Mild pulmonic regurgitation. Pericardium No pericardial effusion. Aorta Aorta at the level of the sinotubular junction normal. CONCLUSIONS Normal LV size. Mild concentric LVH. LVEF 55% No obvious regional wall motion abnormality No significant gastric dysfunction No significant valvular dysfunction RVSP is not elevated and estimated at less than 25 mmHg Previewed by: Dr Cristopher Rucker (Electronically Signed) Final Date: 29 May 2023 11:42
--- NOTE | 2023-05-29 11:45 | MR ---
EXAMINATION TYPE: MR lumbar spine wo/w con DATE OF EXAM: 05/29/2023 COMPARISON: 05/27/2023 HISTORY: left leg pain and swelling and weakness, gadavist 7ml TECHNIQUE: T1 and T2 axial and sagittal images of the lumbar spine are submitted. FINDINGS: There is no abnormal signal seen within the visualized spinal cord or paraspinal soft tissu es. At L1-2 there is severe degenerative disc disease with circumferential disc bulging. Moderate left fo raminal encroachment with bulging greater laterally to the left. Correlate for radiculopathy at this level. At L2-3 there is moderate degenerative disc disease L2-L3 with circumferential disc bulging. Mild rig ht and moderate left foraminal encroachment. At L3-4 there is hypertrophic change of the facets and ligamentum flavum with circumferential disc bu lging. Mild bilateral foraminal encroachment. No canal stenosis. At L4-5 there is grade 1 anterolisthesis with advanced facet arthropathy. Moderate left and mild righ t foraminal encroachment. Broad-based disc bulging, and ligamentum flavum hypertrophy contribute to m oderate central stenosis. At L5-S1 there is focal left-sided paracentral disc small herniation abutting the exiting left nerve root. Neural foramina remain patent. Mild effacement of the thecal sac. There is no abnormal enhancement postcontrast administration. IMPRESSION: 1. Small left paracentral disc herniation L5-S1 abutting the exiting left nerve root correlate radicu lopathy. 2. Disc bulging and severe degenerative disc disease L1 -2 and L2-3 with bilateral foraminal protrusi on greater on the left lower leg radiculopathy this level. 3. Grade 1 anterolisthesis L4-L5 with bilateral foraminal encroachment and mild central stenosis.
[2023-05-29 12:11] VITALS: PULSE 60
[2023-05-29] MEDS: LACTATED RINGERS 1,000 ML IV ONE (12:40)
[2023-05-29] MEDS ORDERED: IOPAMIDOL M200 10 ML VIAL ONE (12:54)
[2023-05-29] MEDS ORDERED: MIDAZOLAM 2 MG/2 ML VIAL ONE (12:54)
[2023-05-29] MEDS ORDERED: fentaNYL (PF) 50 MCG/ML 2 ML AMP ONE (12:54)
[2023-05-29] MEDS ORDERED: methylPREDNISolone ACETATE 80 MG/ML 1 ML VIAL ONE (12:54)
--- NOTE | 2023-05-29 13:09 | P.PCN ---
Date of Procedure: 05/29/23 Procedure(s) Performed: PREOPERATIVE DIAGNOSIS: 1- Lumbar Degenerative Disc Diseases 2-Lumbar spondylosis with Facet arthropathy without myelopathy. 3-lumbar spinal stenosis 4-lumbar radiculopathy POSTOPERATIVE DIAGNOSIS: 1-lumbar degenerative disc disease. 2-lumbar spondylosis with facet arthropathy without myelopathy. 3-lumbar spinal stenosis. 4-lumbar radiculopathy PROCEDURE 1. Lumbar epidural steroid injection under fluoroscopic guidance at the L4-5 level. (Fluoroscopy imaging was available in radiology department) 2. Lumbar epidurogram. ANESTHESIA: Moderate sedation with Versed 2 mg and fentanyl 100 mcg , and lidocaine 1% 3 and then only. ( sedation start 1254 ,ended 1304 ) EBL: Minimal PROCEDURE INDICATION: The patient with low back pain and radiculitis symptoms unresponsive to conservative treatment. Fluoroscopy was used to optimize visualization of the needle placement and to maximize safety. PROCEDURE DESCRIPTION / TECHNIQUE: The patient was seen and identified in the preoperative area. Risks, benefits, complications including but not limited to infections ,bleeding ,allergic reaction to the medications ,nerve damage and not complete pain releife , and alternatives were discussed with the patient. The patient agreed to proceed with the procedure and signed the consent, and vital signs were stable. Patient was taken to the OR and time out was completed. The patient was placed in the prone position on procedure table and a pillow was placed under the abdomen to reduce lumbar lordosis. The lumbosacral area was prepped and draped in the usual sterile fashion.ere closely monitored during the procedure. Vital signs was monitered during the entire procedure. Using anterior-posterior fluoroscopy, the L4-5 interlaminar space was identified and the skin over this site was marked and then infiltrated with 1% lidocaine subcutaneously. Subsequently, a 20-gauge Tuohy epidural needle was inserted and advanced toward the epidural space using the ``Loss of resistance technique and guided by AP and lateral fluoroscopy. The correct needle position in the epidura l space was verified with the injection of 2 mL of the water soluble contrast dye Isovue 200 contrast and observing an excellent epidurogram with the epidural spread of the dye, after negative aspiration for blood and CSF and in the absence of paresthesias. Again after negative aspiration, a 6 ml mixture containing 80 mg of Depo-medrol ( Preservetive Free ), and 2 ml of preservative free Normal Saline, and 2 ml of preservative free lidocaine 1% solution was injected and a washout of epidurogram was seen. Needle was withdrawn intact, skin was cleansed, and bandages were applied. COMPLICATIONS: None DISPOSITION / PLANS: The patient was placed in a supine position and transferred to the recovery area in a stable condition for observation. There was no evidence of lower extremity motor or sensory deficit after the procedure. Patient was discharged from the recovery room after meeting discharge criteria. Home discharge instructions were given to the patient by the staff. The patient was reexamined prior to discharge. The patient will schedule a follow up in the clinic in 2-4 weeks.
[2023-05-29 14:53] VITALS: BP 143/82; RESP 16; TEMP 98.6
--- NOTE | 2023-05-29 22:15 | FL ---
EXAMINATION TYPE: FL guided pain mgmt statistic DATE OF EXAM: 05/29/2023 FLUOROSCOPY Fluoroscopy time of 9 seconds was used during lumbar epidural steroid injection. 2 image/s document/ s the procedure. DAP- 0.32170 mGyCM2.
== END 2023-05-29 19:05 | disposition home or self-care (01) ==
LOC: EC 18:26 → 6NMEDSUR 05-28 00:50
PROVIDERS: ADMIT Family Medicine; ATTEND Family Medicine
DX: M51.16 Intervertebral disc disorders with radiculopathy, lumbar region (principal); M48.061 Spinal stenosis, lumbar region without neurogenic claudication; M47.26 Other spondylosis with radiculopathy, lumbar region; I48.91 Unspecified atrial fibrillation; J44.9 Chronic obstructive pulmonary disease, unspecified; E03.9 Hypothyroidism, unspecified; I11.0 Hypertensive heart disease with heart failure; I50.32 Chronic diastolic (congestive) heart failure; R73.03 Prediabetes; E66.9 Obesity, unspecified; Z68.32 Body mass index [BMI] 32.0-32.9, adult; Z79.890 Hormone replacement therapy; Z79.899 Other long term (current) drug therapy; Z88.2 Allergy status to sulfonamides
CPT/HCPCS: 96376 ×3; 96374; 96375; 99285; 36415; 94640; 93005; 93306; 83880; 80053 ×2; 83605; 83735 ×2; 84100 ×2; 84443; 84484; 85025 ×2; 85610; 85730; 81001; 73502; 71046; 72131; 71250; 72158; 62323; G0378 ×2; J2250; J1040; J2920 ×2; J3010; J1170 ×3; Q9966; A9585

== ENCOUNTER → 2023-08-07 | Outpatient (CLI) | payer OTHER ==
[2023-08-07 14:35] VITALS: BP 137/64; PULSE 57; RESP 16
--- NOTE | 2023-08-07 14:35 | P.PAINCN ---
History of Present Illness - Reason for Consult Consult date: 08/07/23 lumbar back pain, left leg pain - Chief Complaint lumbar back - History of Present Illness Ms. Helton is a 63 year old pleasant female patient came to [facility] pain management clinic for initial evaluation for lumbar back pain Patient described pain started many years ago. Patient described pain as aching, sharp, throbbing, spasmtype of pain. her pain sometimes radiating to her left lower extremity causing numbness tingling sensation. Patient rated pain 7 out of 10 in severity. Which may very her pain level from 5-9 out of 10 in severity. Pain increases with activities, and standing, walking, sitting, bending forward, and lifting. Pain decreases with rest and physical therapy, medications. Overall patient activities decreased secondary to pain. Pain medications helping to some extent. Because of the pain patient is feeling lack of sleep and interest and energy. Denied any bowel or bladder problems. Patient denies any adverse effects to medications. she is using 4 prong cane walking aids for walking. Complaining depression secondary to pain but denied any suicidal/homicidal tendency at this time. There are no signs of narcotic diversion/misuse/overuse and no new-onset weakness, bowel/bladder incontinence, saddle anesthesia, or no red flag symptoms. Conservative treatment tried: Sult-ada-dxontya medications, [id number] lidocaine patch Ice, and heat Physical therapy exercises, exercises at home as tolerated TENS unit's- never tried Chiropractic therapy- never tried Review of Systems 13 point review of symptoms negative except as mentioned in the history of present illness Past Medical History Past Medical History: Atrial Fibrillation, Asthma, Thyroid Disorder Additional Past Medical History / Comment(s): a-fib after knee replacment (proximal) History of Any Multi-Drug Resistant Organisms: MRSA Year Discovered:: 2014 MDRO Source:: abdomen Past Surgical History: Cholecystectomy, Orthopedic Surgery Additional Past Surgical History / Comment(s): left knee replacment,eye surgery,carmine knee arthroscopies,D&Cx2 Past Anesthesia/Blood Transfusion Reactions: No Reported Reaction Additional Past Anesthesia/Blood Transfusion Reaction / Comm: a-fib after knee replacment (proximal). no hx blood transfusions Past Psychological History: No Psychological Hx Reported Smoking Status: Never smoker Past Alcohol Use History: None Reported Past Drug Use History: None Reported - Past Family History Father Family Medical History: COPD, Diabetes Mellitus Additional Family Medical History / Comment(s): enalrged heart Medications and Allergies Home Medications Medication Instructions Recorded Confirmed Type HYDROcodone/APAP 5-325MG [[place] 1 tab PO Q12H PRN 11/03/22 08/07/23 History 5-325] Ascorbic Acid [Vitamin C] 1,000 mg PO DAILY 05/27/23 08/07/23 History Calcium Carbonate [Calcium] 600 mg PO DAILY 05/27/23 08/07/23 History Cyanocobalamin (Vitamin B-12) 1,000 mcg PO DAILY 05/27/23 08/07/23 History [Vitamin B-12] Gabapentin 800 mg PO TID 05/27/23 08/07/23 History Ipratropium-Albuterol Nebulize 3 ml INHALATION RT-BID 05/27/23 08/07/23 History [Duoneb 0.5 mg-3 mg/3 ml Soln] Levothyroxine Sodium [Synthroid] 100 mcg PO DAILY 05/27/23 08/07/23 History Triamterene/Hydrochlorothiazid 2 tab PO DAILY 05/27/23 08/07/23 History [Triamterene-Hctz 37.5-25 mg Tb] amLODIPine [Norvasc] 5 mg PO DAILY PRN 05/27/23 08/07/23 History Allergies Allergy/AdvReac Type Severity Reaction Status Date / Time sulfamethoxazole Allergy Rash/Hives Verified 08/07/23 13:42 [From Bactrim] trimethoprim [From Bactrim] Allergy Rash/Hives Verified 08/07/23 13:42 Physical Exam General: Well-developed, well-nourished, no acute distress HEENT: Normocephalic, and atraumatic Neck: Supple, no neck swelling Psychiatric: Appropriate mood, and affect DYNAMICS AX SOLUTION ARCHITECT: No focal neurological deficits Musculoskeletal: Upper extremity: Normal strength, and range of motion. Sensation grossly intact Lower extremity: Normal strength, and decreased range of motion secondary to pain Lumbar spine: Paravertebral tenderness: positive , multiple trigger point over lumbar spine area Lumbar facet load test : positive Sacroiliac joint tenderness: Positive Thigh thrust test: Positive SI joint compression test: Positive strait leg raising test: refused Results Comments: lumbar spine MRI without contrast done on 05/29/2023 showed A small left paracentral disc herniation at L5-S1 abutting the exiting left nerve root neural foramina remain patent. Mild effacement of the thecal sac. Disc bulging, and severe degenerative disc disease at L1-L2, and L2-L3 with bilateral foraminal protrusion greater on the left lower leg radiculopathy. Grade 1 anterolisthesis of L4-L5 with bilateral foraminal encroachment and bilateral central canal stenosis Assessment and Plan Assessment: lumbar spondylosis without myelopathy Left lumbar radiculopathy Lumbar myofascial pain syndrome Bilateral sacroiliac joint dysfunction Chronic pain syndrome Plan: #1 Diagnoses, prognosis, and multiple treatment options including but not limited to physical therapy, interventional therapy, adjunct medication therapy, narcotic medication, and surgical options were discussed with the patient. And all questions were answered to the patient's satisfaction. #2 treatment plan agreement : Patient was thoroughly discussed regarding the treatment options, alternatives, and importance of exercises as tolerated. Patient clearly understood. #3 Patient was counseled on importance of regular exercise. Including jose manuel chi, aerobic exercises as tolerated. Which helps for chronic pain, and overall well- being. #4 investigations: MAPS- reviewed , urine drug test- not done #5 diagnostic tests: none #6 consultation : continue physical therapy. She is currently doing physical therapy 2 times a week for 4 weeks duration. # 7 interventional procedures: left side L4-L5 epidural steroid injection #2. Procedure, complications, alternatives discussed with the patient. #8 medications none from the pain clinic #9 morphine milligrams equivalents dose ( MME) per day: 0 # 10 TENS unit's, and percussion massage device #11 disposition: scheduled to follow up with pain clinic in 8 weeks duration. Time with Patient: Less than 30 PQRS Measure Charge Sheet Measure #130: Documentation of Current Meds in Medical Chart: Patient's medications documented in chart Measure #226: Tobacco Use: Screen & Cessation Intervention: Pt not a tobacco user Measure #111: Pneumonia Vaccination: Pneumococcal vaccine NOT administered or previously given Measure #47: Advance Care Plan: Advance care planning discussed & documented, plan or surrogate given Measure #412: Opioid Treatment Agreement: No documentation of signed opioid treatment agreement Measure #408: Opioid Therapy Follow-up Evaluation: Patient had NO f/u eval minimum every 3 months during opioid therapy Measure #317: Preventitive Care & Scrn High Bld Press & F/U: Pre-hypertensive or hypertensive BP documented, pt will f/u with PCP Measure #128: Body Mass Index (BMI) Screening & Follow-up: BMI documented ABOVE normal parameters - f/u documented Measure #131: Pain Assessment & Follow-up: Pain positive & plan documented Measure #431: Unhealthy Alcohol Use Preventative Care & Scrn: Patient not identified as an unhealthy alcohol user - Pain Location Bilateral Lower Back Non-Pharmacological Interventions: Chiropractic Treatment, Heat, Inactivity, Physical Therapy, Position/Reposition Pharmacological Interventions: PRN Medication, Scheduled Medication, Topical Medication PQRS Narrative: Smoking Status Never smoker Home Medications: Ambulatory Orders HYDROcodone/APAP 5-325MG [[place] 5-325] 1 tab PO Q12H PRN 11/03/22 Ascorbic Acid [Vitamin C] 1,000 mg PO DAILY 05/27/23 Calcium Carbonate [Calcium] 600 mg PO DAILY 05/27/23 Cyanocobalamin (Vitamin B-12) [Vitamin B-12] 1,000 mcg PO DAILY 05/27/23 Gabapentin 800 mg PO TID 05/27/23 Ipratropium-Albuterol Nebulize [Duoneb 0.5 mg-3 mg/3 ml Soln] 3 ml INHALATION RT -BID 05/27/23 Levothyroxine Sodium [Synthroid] 100 mcg PO DAILY 05/27/23 Triamterene/Hydrochlorothiazid [Triamterene-Hctz 37.5-25 mg Tb] 2 tab PO DAILY 05/27/23 amLODIPine [Norvasc] 5 mg PO DAILY PRN 05/27/23
== END ==
LOC: PNWHC3 13:29
DX: M54.50 Low back pain, unspecified (principal); M47.26 Other spondylosis with radiculopathy, lumbar region; M79.18 Myalgia, other site; M46.1 Sacroiliitis, not elsewhere classified; G89.4 Chronic pain syndrome; F32.A Depression, unspecified; Z71.82 Exercise counseling; Z79.899 Other long term (current) drug therapy; Z88.1 Allergy status to other antibiotic agents; Z88.2 Allergy status to sulfonamides
CPT/HCPCS: 99211

== ENCOUNTER 2023-08-28 08:45 | Day surgery (SDC) | payer OTHER ==
[2023-08-28] MEDS ORDERED: LACTATED RINGERS 1,000 ML IV SCH (09:45)
[2023-08-28 10:14] VITALS: TEMP 97.1
[2023-08-28] MEDS ORDERED: IOPAMIDOL M200 10 ML VIAL ONE (10:27)
[2023-08-28] MEDS ORDERED: methylPREDNISolone ACETATE 80 MG/ML 1 ML VIAL ONE (10:27)
--- NOTE | 2023-08-28 10:33 | P.PCN ---
Date of Procedure: 08/28/23 Procedure(s) Performed: PREOPERATIVE DIAGNOSIS: 1- Lumbar Degenerative Disc Diseases 2-Lumbar spondylosis with Facet arthropathy without myelopathy. 3-lumbar spinal stenosis 4-lumbar radiculopathy POSTOPERATIVE DIAGNOSIS: 1-lumbar degenerative disc disease. 2-lumbar spondylosis with facet arthropathy without myelopathy. 3-lumbar spinal stenosis. 4-lumbar radiculopathy PROCEDURE 1. Lumbar epidural steroid injection under fluoroscopic guidance at the L4-5 level. (Fluoroscopy imaging was available in radiology department) 2. Lumbar epidurogram. ANESTHESIA: lidocaine 1% 3 and then only. EBL: Minimal PROCEDURE INDICATION: The patient with low back pain and radiculitis symptoms unresponsive to conservative treatment. Fluoroscopy was used to optimize visualization of the needle placement and to maximize safety. PROCEDURE DESCRIPTION / TECHNIQUE: The patient was seen and identified in the preoperative area. Risks, benefits, complications including but not limited to infections ,bleeding ,allergic reaction to the medications ,nerve damage and not complete pain releife , and alternatives were discussed with the patient. The patient agreed to proceed with the procedure and signed the consent, and vital signs were stable. Patient was taken to the OR and time out was completed. The patient was placed in the prone position on procedure table and a pillow was placed under the abdomen to reduce lumbar lordosis. The lumbosacral area was prepped and draped in the usual sterile fashion.ere closely monitored during the procedure. Vital signs was monitered during the entire procedure. Using anterior-posterior fluoroscopy, the L4-5 interlaminar space was identified and the skin over this site was marked and then infiltrated with 1% lidocaine subcutaneously. Subsequently, a 20-gauge Tuohy epidural needle was inserted and advanced toward the epidural space using the ``Loss of resistance technique and guided by AP and lateral fluoroscopy. The correct needle position in the epidural space was verified with the injection of 2 mL of the water soluble contrast dye Isovue 200 contrast and observing an excellent epidurogram with the epidural spread of the dye, after negative aspiration for blood and CSF and in the absence of paresthesias. Again after negative aspiration, a 6 ml mixture containing 80 mg of Depo-medrol ( Preservetive Free ), and 2 ml of preservative free Normal Saline, and 2 ml of preservative free lidocaine 1% solution was injected and a washout of epidurogram was seen. Needle was withdrawn intact, skin was cleansed, and bandages were applied. COMPLICATIONS: None DISPOSITION / PLANS: The patient was placed in a supine position and transferred to the recovery area in a stable condition for observation. There was no evidence of lower extremity motor or sensory deficit after the procedure. Patient was discharged from the recovery room after meeting discharge criteria. Home discharge instructions were given to the patient by the staff. The patient was reexamined prior to discharge. The patient will schedule a follow up in the clinic in 2-4 weeks.
--- NOTE | 2023-08-28 10:45 | FL ---
EXAMINATION TYPE: FL guided pain mgmt statistic Intraoperative/procedural fluoroscopic services were provided. Total fluoroscopy time is 1.9 seconds with a total of 1 submitted images to PACS. Please se e the operative/procedural note for further details. DAP: [id number] mGym2
[2023-08-28 11:13] VITALS: BP 142/71; PULSE 52; RESP 18
== END 2023-08-28 11:06 | disposition home or self-care (01) ==
LOC: ORPAIN 08:45
PROVIDERS: ATTEND Specialist
DX: M47.26 Other spondylosis with radiculopathy, lumbar region (principal); M51.16 Intervertebral disc disorders with radiculopathy, lumbar region; M48.061 Spinal stenosis, lumbar region without neurogenic claudication; Z88.1 Allergy status to other antibiotic agents; Z79.1 Long term (current) use of non-steroidal anti-inflammatories (NSAID)
CPT/HCPCS: 62323; Q9966; J1010

== ENCOUNTER → 2023-09-24 | Outpatient (CLI) | payer OTHER ==
[2023-09-24 10:10] VITALS: BP 138/83; PULSE 59; RESP 16
--- NOTE | 2023-09-24 14:47 | P.PAINPG ---
Objective - Vital Signs Vital signs: Intake & Output 09/23/23 09/24/23 09/24/23 18:59 06:59 18:59 Weight 68.492 kg PQRS Measure Charge Sheet Comment: A 63 yr old female with a history of severe and chronic LBP secondary to lumbar DDD and spondylosis with facet arthropathy without myelopathy, L Sacroiliitis presents today for YAZMIN L4-L5 #1. Pt states she experienced 50 % pain relief x 4 wks s/p procedure. Pain level is provoked at 9 /10 in intensity, constant, predominantly axial, localized in the lumbar spine, sharp in character w occasional shooting towards the L groin, hip and LLE. Pain is provoked by over activity. Pain is alleviated with physician guided exercises every other day since Jul 2023, heat, ice, medications (Neurontin, [place], Ibu), use of a cane for ambulatory assistance, manual massage , repositioning and rest. Oswestry axial pain score at 27. Interventional pain procedures completed include YAZMIN L4-L5 x1 Patient is currently on [place], Neurontin, Ibu Patient denies any side effects of the medication(s), denies excessive drowsiness or sleepiness, denies suicidal ideation and reports that the current pain medication is helping to control the pain and improve activities of daily living. Patient denies any motor or sensory deficits. Patient denies any fever or night sweats, denies any change in the bowel movements or urination. Physical Examination: -Constitutional: Cooperative. Not in acute distress . - Neurologic: Cranial nerve II to XII intact. No focal neurological deficits. - Psychatric: Alert & oriented x 3. Matching mood & appropriate affect. Judgment and insight intact. - Musculoskeletal: Cervical spine: Muscle bulk/ tone/ strength in the bilateral upper extremities normal Vertebral body tenderness to palpation over Spurling test positive Distraction test positive Facet loading test positive TTP Thoracic spine Muscle bulk / tone/ strength in the bilateral paraspinal muscles normal Vertebral body tender to palpation over Facet loading test positive TTP Lumbar spine: Motor bulk/ tone/ strength lower extremities , thigh and legs : 5/5 Deep tendon reflexes : Normal Knee Jerk. Normal Ankle Jerk . Vertebral body tenderness to palpation over Milner Test positive Lumbar Facet Loading Test positive Straight Leg Raise: positive at 30 degrees right side/ left side Gaenslen's Test positive Sacral spine : Severe tenderness over the Sacroiliac joint: right side / left side Range of motion: Flexion of the lumbar spine <60 degrees Range of motion: Extension of the lumbar spine <20 degrees Gaenslen's Test positive right side / left side Corrine test: positive right side / left side Thigh Thrust Test positive right side / left side Sacral Thrust Test positive left side Assessment and plan: Chronic LBP secondary to lumbar DDD, spondylosis with facet arthropathy without myelopathy, L Sacroiliitis Recommendation of L SI Injection #1. May need a series of injections for optimal pain relief. Risks, benefits of procedure discussed and pt verbalized understanding. Admits to anticoagulant use or medical history of diabetes. Protocol for discontinuation/ continuation of medications hira procedure discussed. All questions answered. I have spent less than 30 minutes on patient care today. Dr Patel was available by phone for the evaluation of this patient. The time was used to review the medical records including relevant urine studies and Prescription history (MAPs), review of the available imaging, evaluation and examination of the patient, coordination of care with the medical staff and if applicable referring physicians, as well as creation of the medical record PQRS Narrative: Smoking Status Never smoker Hx Alcohol Use (MH) No Home Medications: Ambulatory Orders Ascorbic Acid [Vitamin C] 1,000 mg PO DAILY 05/27/23 Calcium Carbonate [Calcium] 600 mg PO DAILY 05/27/23 Cyanocobalamin (Vitamin B-12) [Vitamin B-12] 1,000 mcg PO DAILY 05/27/23 Gabapentin 800 mg PO TID 05/27/23 Ipratropium-Albuterol Nebulize [Duoneb 0.5 mg-3 mg/3 ml Soln] 3 ml INHALATION RT-BID 05/27/23 Levothyroxine Sodium [Synthroid] 100 mcg PO DAILY 05/27/23 Triamterene/Hydrochlorothiazid [Triamterene-Hctz 37.5-25 mg Tb] 2 tab PO DAILY 05/27/23 amLODIPine [Norvasc] 5 mg PO DAILY PRN 05/27/23 Hydrocodone/Acetaminophen [Hydrocodone/Acetaminophen 7.5-325] 1 tab PO Q8H 08/26/23 Ibuprofen [Motrin] 800 mg PO TID 08/26/23 Controlled Substance Measures - Controlled Substance Measures Is patient prescribed a controlled substance at discharge?: No
== END | disposition home or self-care (01) ==
LOC: PNWHC3 09:39
PROVIDERS: ATTEND Specialist
DX: M46.1 Sacroiliitis, not elsewhere classified (principal); M51.36 Other intervertebral disc degeneration, lumbar region; M47.816 Spondylosis without myelopathy or radiculopathy, lumbar region; Z88.1 Allergy status to other antibiotic agents; Z88.2 Allergy status to sulfonamides
CPT/HCPCS: 99211

== ENCOUNTER 2023-10-07 11:11 | Day surgery (SDC) | payer OTHER ==
[2023-10-06 11:48] VITALS: BMI 31.5
[2023-10-07] MEDS ORDERED: LACTATED RINGERS 1,000 ML IV SCH (11:47)
[2023-10-07 11:54] VITALS: RESP 18; TEMP 98
[2023-10-07] MEDS ORDERED: methylPREDNISolone ACETATE 40 MG/ML 1 ML VIAL ONE (12:46)
[2023-10-07] MEDS ORDERED: IOPAMIDOL M200 10 ML VIAL ONE (12:46)
[2023-10-07] MEDS ORDERED: ROPIVACAINE 5MG/ML 20ML VIAL ONE (12:46)
--- NOTE | 2023-10-07 12:52 | P.PCN ---
Date of Procedure: 10/07/23 Procedure(s) Performed: Procedure= left sacroiliac joints steroid injection under fluoroscopy guidance (fluoroscopy image stored on file in the radiology Department ) Preoperative diagnosis= 1- left sacroiliitis 2-lumbar degenerative disc disease 3-lumbar facet arthropathy Postoperative diagnosis=Same as preop Diagnosis . Complication = none Condition= stable Anesthesia= local anesthesia with ropivacaine 0.5% 4 ml only Indication for the procedure= patient complaining of low back pain , examination was positive for severe tenderness over the left sacroiliac joints , and patient diagnosed with sacroiliitis, for this reason she was good candidate for sacroiliac joint steroid injection. Description of the procedure= procedure risk and benefits discussed with the patient, including but not limited, risk of infection and bleeding, and ALLERGIC reaction to the medication and not complete pain relief and patient agreed with the preceding patient taken to the operating room, placed in prone position or standard monitors applied to the patient then after induction of anesthesia back prepped with chlorhexidine 3 times , Then the left sacroiliac joint steroid injection done under strict sterile technique local infiltration of the skin and subcu interstitial at the location of the left sacroiliac joint then a 22-gauge Quincke Needle advanced slowly under fluoroscopy time placed in the left sacroiliac joint, needle placement confirmed with AP and oblique and lateral view then after appropriate needle placement confirmed, with the AP and oblique and lateral then after negative aspiration Isovue 200 1 mL injected showed arthropathy of the left sacroiliac joint, and after negative aspiration 0.5% Ropivacaine 3 mL and 40 mg of Depo- Medrol injected in the left sacroiliac joint after negative aspiration patient tolerated the procedure well that any complications and she will follow up in clinic 3 weeks
[2023-10-07 12:57] VITALS: BP 134/72; PULSE 58
--- NOTE | 2023-10-07 13:11 | FL ---
EXAMINATION TYPE: FL guided pain mgmt statistic DATE OF EXAM: 10/07/2023 FLUOROSCOPY Fluoroscopy time of 3.3 seconds was used during SI joint injection. 1 image/s document/s the procedu re. dap [id number] [id number]
== END 2023-10-07 13:23 | disposition home or self-care (01) ==
LOC: ORPAIN 11:11
PROVIDERS: ATTEND Specialist
DX: M46.1 Sacroiliitis, not elsewhere classified (principal); M51.36 Other intervertebral disc degeneration, lumbar region; M47.816 Spondylosis without myelopathy or radiculopathy, lumbar region; Z88.1 Allergy status to other antibiotic agents
CPT/HCPCS: 27096